=== PATIENT | male | born 1995 | race Caucasian/White ===

== ENCOUNTER 2019-08-14 13:01 | Emergency (ER) | payer BC ==
[~2019-08-14] VITALS: Ht 175.3 cm; Wt 123.0 kg
[~2019-08-14 13:01] MED LIST: ARIP400S3 IM; LORA-269 PO; ZOLP10TA5 PO
[2019-08-14] MEDS ORDERED: diphenhydrAMINE 50 mg/ml inj IM ONE (13:05)
[2019-08-14] MEDS ORDERED: LORazepam 2 mg/ml vial IM ONE (13:05)
[2019-08-14] MEDS ORDERED: haloperidol lactate 5mg/ml inj IM ONE (13:05)
[2019-08-14 14:08] LABS: BASOPHILS # (AUTO) 0.1 X10'3 (0-0.2); BASOPHILS % (AUTO) 0.6 % (0-1); EOSINOPHILS # (AUTO) 0.1 X10'3 (0-0.9); EOSINOPHILS % (AUTO) 1.5 % (0-6); HEMATOCRIT 41.1 % (42.0-52.0); HEMOGLOBIN 14.1 g/dl (14.0-17.9); LYMPHOCYTES # (AUTO) 3.2 X10'3 (1.1-4.8); LYMPHOCYTES % (AUTO) 39.4 % (21-51); MEAN CORPUSCULAR HEMOGLOBIN 29.6 PG (27.0-31.0); MEAN CORPUSCULAR HGB CONC 34.2 g/dL (33.0-36.5); MEAN CORPUSCULAR VOLUME 86.4 FL (78-98); MEAN PLATELET VOLUME 8.4 FL (7.4-10.4); MONOCYTES # (AUTO) 0.5 X10'3 (0-0.9); MONOCYTES % (AUTO) 5.6 % (2-12); NEUTROPHILS # (AUTO) 4.3 X10'3 (1.8-7.7); NEUTROPHILS % (AUTO) 52.9 % (42-75); PLATELET COUNT 321 X10'3 (140-440); RED BLOOD COUNT 4.75 X10'6 (4.70-6.10); RED CELL DISTRIBUTION WIDTH 13.3 % (11.5-14.5); WHITE BLOOD COUNT 8.2 X10'3 (4.5-11.0)
[2019-08-14 14:11] LABS: CLARITY,URINE CLEAR (Clear); COLOR,URINE STRAW (Yellow); GLUCOSE, URINE NEGATIVE (Neg); KETONES,URINE NEGATIVE (Neg); LEUKOCYTE ESTERASE ,URINE NEGATIVE (Neg); NITRITES, URINE NEGATIVE (Neg); OCCULT BLOOD,URINE NEGATIVE (Neg); PROTEIN,URINE NEGATIVE (Neg); UROBILINOGEN,URINE 0.2 E.U/dL (0.2-1.0)
[2019-08-14 14:14] LABS: UA COLLECTION TYPE VOIDED
[2019-08-14 14:15] LABS: ALANINE AMINOTRANSFERASE 30 U/L (12-78); ALBUMIN 3.9 G/DL (3.4-5.0); ALKALINE PHOSPHATASE 89 IU/L (46-116); ANION GAP 9 (8-16); ASPARTATE AMINO TRANSFERASE 23 U/L (10-37); BILIRUBIN,TOTAL 0.4 MG/DL (0.1-1.0); BLOOD UREA NITROGEN 11 MG/DL (7-18); BUN/CREATININE RATIO 12.6 (5.4-32.0); CALCIUM 9.1 MG/DL (8.5-10.1); CHLORIDE 107 MMOL/L (99-107); CREATININE 0.87 MG/DL (0.60-1.10); GLUCOSE 105 MG/DL (70-104); POTASSIUM 3.9 MMOL/L (3.5-5.1); SODIUM 140 MMOL/L (135-145); TOTAL CARBON DIOXIDE 24.2 MMOL/L (24-32); TOTAL PROTEIN 7.9 G/DL (6.4-8.2); eGFR > 90 ML/MIN
--- NOTE | 2019-08-14 14:20 | NUR ---
Pt is calm and cooperative. Restraints removed.
[2019-08-14 14:24] LABS: URINE AMPHETAMINE SCREEN NEGATIVE (Neg); URINE BARBITUATE SCREEN NEGATIVE (Neg); URINE BENZODIAZEPINES SCREEN NEGATIVE (Neg); URINE CANNABINOID SCREEN NEGATIVE (Neg); URINE COCAINE SCREEN POSITIVE (Neg); URINE METHADONE SCREEN NEGATIVE (Neg); URINE OPIATE SCREEN NEGATIVE (Neg); URINE PHENCYCLIDINE SCREEN NEGATIVE (Neg)
[2019-08-14 14:27] LABS: ETHANOL < 0.010 GM/DL (0.0-0.010)
[2019-08-14] MEDS ORDERED: nicotine 21mg patch - 24 hr TD ONE (15:05)
--- NOTE | 2019-08-14 15:20 | NUR ---
Pt continues to be calm and cooperative. Will continue to monitor.
--- NOTE | 2019-08-14 15:51 | NUR ---
Report by RONEY Rocha, on 562. Pt called 911 that he has a gun and suicidal. Pt charged at officer. by Parachute Manufacturing Supervisor. patient got agitated and patient got B52 and on restriants for a short period of time. Patient calm now. HX of schizophrenia, Panic attacks. Not taking meds.
--- NOTE | 2019-08-14 16:37 | NUR ---
Around 1630, Patient standing by his bed. Patient called the tech over and said he feels weak. Tech called the RN as RN approached patient as patient blacks out and falls almost straight back like a board. Patient hit his head on the ground and was out for a few seconds. Then patient grabs his head and yells "Ow". Then patient appears to completely pass out. Bilateral pupils were large at about a 5. Patient was non-responsive but breathing. Irving Saucedo came to evaluate patient and patient aroused after a couple of minutes. C-spine was maintained and a c-collar was placed on patient. Patient was placed on a gurney. Orders for CT of head and C-spine ordered. Patient is now awake and alert. Irving gave patient 3 items to remember, blue, waterfall and baseball. Patient has been able to repeat the items. Continue to monitor.
--- NOTE | 2019-08-14 16:54 | NUR ---
Patient also c/o numbness to left toes. Upper ext, equal strength, equal movement.
--- NOTE | 2019-08-14 17:01 | NUR ---
Patient pending CT. RN talking to patient as he lays in the gurney awaiting CT. Patient states he is still suicidal and states his life is "shit." Patient states he mother does support him emotionally but he doesn't want his mom knowing about this because he has done this before. Continue to monitor.
--- NOTE | 2019-08-14 17:04 | NUR ---
Patient to CT via [employer] and 2 security guards. Patient contines with c-collar. Continue to monitor.
--- NOTE | 2019-08-14 17:32 | NUR ---
Patient states he has a history of Stress Seizures.
[2019-08-14] MEDS ORDERED: HALO2TAB PO (18:06)
[2019-08-14] MEDS ORDERED: PROP10TA10 PO (18:06)
[2019-08-14] MEDS ORDERED: QUET50TA PO (18:06)
[2019-08-14] MEDS ORDERED: hydrOXYzine 25 MG tablet PO PRN (18:10)
[2019-08-14] MEDS ORDERED: acetaminophen 325mg tablet PO PRN (18:15)
--- NOTE | 2019-08-14 18:30 | NUR ---
Patient is awake and well oriented. Patient denies S/I or H/I at this moment. He denies hallucinations. Patient tells this telegraphic typewriter installer that he was drinking heavily over the past three days, "I spent over 600.00 on meth, cocaine, and alcohol. This patient speaks in a quiet voice, he makes fair eye contact. Patient has a history of Bipolar 2 and Schizophrenia. He states drugs "help me feel empowered." The patients bed is in view from the nursing station.
--- NOTE | 2019-08-14 19:30 | NUR ---
Patient is cooperative with staff. He is low fowlers in bed. He is wearing a cervical collar that was placed on the earlier shift.
--- NOTE | 2019-08-14 19:35 | NUR ---
Patient is sleeping on his right side. His cervical collar is laying on the floor. Patient will not wear it anymore. Per Dr. Cary patients neck is cleared.
[2019-08-14] MEDS ORDERED: aripiprazole 400mg suspension ER syringe IM SCH (19:40)
[2019-08-14] MEDS: propranolol 10mg tablet PO SCH (20:00)
[2019-08-14] MEDS ORDERED: QUEtiapine 25mg tablet PO SCH (21:00)
--- NOTE | 2019-08-14 21:05 | NUR ---
PACKET FAXED TO [facility]
[2019-08-14] MEDS: haloperidol 1mg tablet PO SCH (22:13)
--- NOTE | 2019-08-14 22:15 | NUR ---
GIVEN EVENING SEROQUEL AND HALDOL. TAKING MEDS WITH NO ISSUES. GIVEN SALTINE CRACKERS AND YOGURT AND FRESH PITCHER OF ICE WATER. . DENIES ANY OTHER NEEDS.
--- NOTE | 2019-08-14 22:24 | NUR ---
Patient is sleeping in low fowlers position. He has been medication compliant tonight.
--- NOTE | 2019-08-15 00:09 | NUR ---
pt observed resting calmly on back with eyes closed. respirations WNL
--- NOTE | 2019-08-15 00:23 | NUR ---
Patient is awake and restless in bed.
[2019-08-15] MEDS ORDERED: diphenhydrAMINE 25mg capsule PO ONE (00:30)
--- NOTE | 2019-08-15 00:58 | NUR ---
Patient given Ativan and Benadryl for anxiety and sleep. He is medication compliant.
--- NOTE | 2019-08-15 01:30 | NUR ---
Patient sleeping, no distress.
--- NOTE | 2019-08-15 02:45 | NUR ---
Patient sleeping supine with blankets covering him all the way up.
--- NOTE | 2019-08-15 03:45 | NUR ---
Patient still in supine position sleeping quietly.
--- NOTE | 2019-08-15 05:00 | NUR ---
Patient sleeping on his right side.
[2019-08-15 05:42] VITALS: BP 116/63
--- NOTE | 2019-08-15 06:10 | NUR ---
Patient remains asleep.
--- NOTE | 2019-08-15 07:10 | NUR ---
Patient sleeping on right side. No distress observed. Continue to monitor.
[2019-08-15] MEDS: propranolol 10mg tablet PO SCH (08:00)
--- NOTE | 2019-08-15 08:15 | NUR ---
Patient sitting up and eating. No distress observed. Continue to monitor.
[2019-08-15] MEDS: haloperidol 1mg tablet PO SCH (08:32)
[2019-08-15] MEDS ORDERED: haloperidol lactate 5mg/ml inj IM ONE (10:05)
[2019-08-15] MEDS ORDERED: LORazepam 2 mg/ml vial IM ONE (10:05)
--- NOTE | 2019-08-15 10:10 | NUR ---
Patient states he feels very suicidal and wants to run. Patient calm and speaking to Tech. Dr Zambrano evaluated patient and okayed IM Ativan and Haldol. Patient agreed to receive the injection. Continu to monitor.
[2019-08-16] MEDS ORDERED: NICO-687 TOP (19:37)
== END 2019-08-15 10:54 ==
LOC: ER 13:01
DX: R45.851 Suicidal ideations (principal); F20.0 Paranoid schizophrenia; I10 Essential (primary) hypertension; F41.9 Anxiety disorder, unspecified; F20.9 Schizophrenia, unspecified; F32.9 Major depressive disorder, single episode, unspecified; F14.10 Cocaine abuse, uncomplicated; F12.90 Cannabis use, unspecified, uncomplicated; Z79.899 Other long term (current) drug therapy
CPT/HCPCS: 36415; 70450; 72125; 80053; 80305; 80320; 81003; 84443; 85025; 96372; 99285; J1200; J1630; J2060; Q0163; Z7610

== ENCOUNTER 2019-08-15 09:53 | Inpatient (IN) | payer BC ==
[~2019-08-15] VITALS: Ht 175.3 cm; Wt 118.8 kg
[~2019-08-15 09:53] MED LIST changes: +HALO2TAB PO; +PROP10TA10 PO; +QUET50TA PO
[2019-08-15] MEDS ORDERED: acetaminophen 325mg tablet PO PRN ×2 (11:05)
[2019-08-15] MEDS ORDERED: magnesium hydroxide 30ml (MOM) UD suspension PO PRN (11:05)
[2019-08-15] MEDS ORDERED: LORazepam 1 MG tablet PO PRN (11:05)
[2019-08-15] MEDS ORDERED: NICOTINE POLACRILEX 2 MG LOZENGE BC PRN (11:05)
[2019-08-15] MEDS ORDERED: traZODone 50mg tablet PO PRN (11:05)
[2019-08-15] MEDS ORDERED: loperamide 2mg capsule PO PRN (11:05)
[2019-08-15] MEDS ORDERED: mag hydrox/Alum hydrox/simeth 30ml oral suspension PO PRN (11:05)
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
--- NOTE | 2019-08-15 17:15 | NUR ---
Pt. found in room on his stomach on the floor by staff unresponsive. Pt.'s roommate reports pt. came out of the bathroom and reported dizziness and roommate caught him and lowered him to the ground. Rapid response was called and pt. opened his eyes after this RN gave strong sternal rub. Pt. then awoke and helped into bed. Pt. A&Ox4. Hospitalist arrived and ordered orthostatic vitals which were supine, sitting, and standin/51 HR56, 103/56 HR79, 104/63 HR91. Orders are to monitor pt. and transfer to Telemetry if pt. has repeat episode. RN spoke with pt.'s nurse in ER overflow and was informed pt.'s Propanolol was discontinued because his HR was dropping into the 40s and 50s. Pt. had similar incident in the ER overflow yesterday when pt. became dizzy and fell back hitting his head on the floor. Pt. had CT scan which was negative. Will continue to monitor.
--- NOTE | 2019-08-15 17:41 | NUR ---
patient fainted and went on floor 02 sats 98% on ra and woke up nurses by his side Addendum: 08/15/19 at 1744 by Kathryn Reese RT Amended: Links added.
[2019-08-15 20:00] VITALS: BP 125/59
--- NOTE | 2019-08-15 20:00 | NUR ---
Pt. refused removal of Nicotine Patch at HS despite education, will endorse to AM shift.
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
--- NOTE | 2019-08-16 04:58 | NUR ---
Pt. awakens and ambulates without any difficulty to the nurse's station, he states, "I just want to go home." Pt. educated that he will talk to the doctor today, and he reported understanding. He was able to re-directed back to bed, and provided a warm blanket. Attempted to complete two-RN skin check at this time r/t no previous documentation under interventions, however pt. refused. Will endorse to AM shift.
[2019-08-16 07:02] LABS: HEMOGLOBIN A1C 5.2 % (4.5-6.2)
[2019-08-16 07:03] LABS: CHOL/HDL RATIO 3.4 (0.00-4.99); CHOLESTEROL 147 MG/DL (0-200); HDL CHOLESTEROL 43 MG/DL (35-60); LDL CHOLESTEROL 90 MG/DL (50-100); TRIGLYCERIDES 134 MG/DL (20-135)
[2019-08-16 07:26] VITALS: BP 98/56
[2019-08-16] MEDS ORDERED: QUEtiapine 25mg tablet PO SCH (08:00)
[2019-08-16] MEDS ORDERED: nicotine 21mg patch - 24 hr TD SCH (08:00)
--- NOTE | 2019-08-16 18:03 | NUR ---
Patient had another syncopal episode today. He was seen by Dr. Doherty he has decided him to transfer to Tele for cardiac work up and observation. Gave nurse to nurse report to Andree. He reported anxiety after the episode and ativan was given. VS WNL except for slightly elevated BP at 134/93, retaken at 142/84. Pt was observed during the episode by this RN. Pt stated "I am having a painc attack". He was holding his chest and was not making eye contact or blinking. His hands were shaking. He states "I can't move". This RN called for assistance and [employer] aided this RN in helping the patient to bed before he lost consciousness. Within seconds, patient sprung from the bed and ran to the door way of his room stating "is someone trying to kill me". He was then redirected back to bed. O2 was 99%, pulse at this time was 88. Patient currently denies SI/ HI, A/VH. Inventory completed by [employer]. Patient is in his street clothing. Andree, RN on Tele states that patient will be transferred after shift change.
[2019-08-16 18:14] VITALS: BP 183/93
--- NOTE | 2019-08-16 19:30 | NUR ---
Discharge Note: Pt. discharged to telemetry room 3013 per MD orders. Report given to BLAZE Loaiza, along with pt. belongings, paperwork, and 5150 by this nurse. Pt. was escorted in W/C by [employer] to receive a CT scan before being taken to the telemetry unit. Pt. calm and cooperative with process, V/S WNL, and no further episodes of syncope. Fall precautions remain in place.
[2019-08-16] MEDS ORDERED: NICO-687 TOP (19:37)
[2019-08-17] MEDS ORDERED: haloperidol 5mg tablet PO ONE (16:30)
[2019-08-17] MEDS ORDERED: LORazepam 1 MG tablet PO SCH (20:00)
[2019-08-17] MEDS ORDERED: haloperidol 5mg tablet PO SCH (20:00)
== END 2019-08-16 19:45 | disposition short-term general hospital (02) | DRG 880 ==
LOC: ADULT MH 09:53
PROVIDERS: ADMIT Psychiatry & Neurology Psychiatry; ATTEND Psychiatry & Neurology Psychiatry
DX: R45.851 Suicidal ideations (principal); F14.90 Cocaine use, unspecified, uncomplicated; F17.210 Nicotine dependence, cigarettes, uncomplicated; F32.9 Major depressive disorder, single episode, unspecified; F41.9 Anxiety disorder, unspecified; R42 Dizziness and giddiness; R55 Syncope and collapse
CPT/HCPCS: 36415; 80061; 82948; 83036; 87081; 99285

== ENCOUNTER 2019-08-16 17:51 | Inpatient (IN) | payer MEDICARE, BC, MEDICAID ==
[~2019-08-16] VITALS: Ht 175.3 cm; Wt 118.8 kg
[~2019-08-16 17:51] MED LIST changes: -HALO2TAB PO; -LORA-269 PO; -PROP10TA10 PO; -ZOLP10TA5 PO
[2019-08-16] MEDS ORDERED: mag hydrox/Alum hydrox/simeth 30ml oral suspension PO PRN (17:55)
[2019-08-16] MEDS ORDERED: ondansetron/PF 4mg/2ml inj IV PRN (17:55)
[2019-08-16] MEDS ORDERED: magnesium hydroxide 30ml (MOM) UD suspension PO PRN (17:55)
[2019-08-16] MEDS ORDERED: acetaminophen 325mg tablet PO PRN (17:55)
--- NOTE | 2019-08-16 19:24 | NUR ---
Received report from [facility] BLAZE Morgan. Patient being transported to room via wheelchair. Patient to be taken to CT scan upon arrival to the unit
[2019-08-16] MEDS ORDERED: NICO-687 TOP (19:37)
--- NOTE | 2019-08-16 19:50 | NUR ---
Patient was being settled into bed by PCT/John and she called staff into the room stating patient passed out. Per PCT patient had been sitting on the side of the bed and stated that he felt like he was going to pass out and then did. Upon arrival to the room patient was on the bed and was slumped over. Patient still had a pulse and was breathing normally. Patient was assisted to a lying position in bed. Sternal rub was administered and after a moment or two patient woke up and a minute or two later began responding to staff appropriately. I asked patient what it was he felt when he said he felt like he was going to pass out and he described it as a tingly all over feeling. Vital signs were unchanged from arrival. Patient had not yet had his tele applied prior to this episode but tele was immediately applied when placed in bed and maintenance mechanic telephone reports sinus rhythm in the 70s. IV was immediately initiated per MD order and NS was started.
[2019-08-16] MEDS: heparin, porcine 5000 units/ml vial SQ SCH (20:00)
[2019-08-16] MEDS: normal saline 1000ml 1,000 ML IV SCH (20:08)
[2019-08-16 20:30] VITALS: BP 135/65
[2019-08-16 21:50] VITALS: BP 127/58
--- NOTE | 2019-08-16 22:20 | NUR ---
Since arrival patient has had 2 additional episodes of falling unresponsive. Patient's vitals remain stable during these episodes. No tele monitor changes. Patient has told sitter each time that he feels it coming on with a tingling feeling in his head and his vision gets blurry. Patient has been in bed each during these episodes. Each episode lasts 5-10 minutes then he wakes up completely oriented. MD made aware of these episodes and advised to continue to monitor vitals signs hourly. Will continue to monitor.
[2019-08-16 23:00] VITALS: BP 109/50
[2019-08-17] VITALS (9 sets, daily range): BP systolic 97–129; BP diastolic 50–66
[2019-08-17] MEDS: normal saline 1000ml 1,000 ML IV SCH ×3 (03:53→23:53)
--- NOTE | 2019-08-17 05:43 | NUR ---
Student Medication Administration: For this medication-pass time frame, all medication were reviewed, dispensed, administered and documented per hospital policy by Lora STEPHENSON.
--- NOTE | 2019-08-17 05:53 | NUR ---
Called to the room by sitter due to patient having another syncopal episode. Patient's vitals remain unchanged. Patient began to arouse after 3-4 minutes of being unresponsive. No s/s of distress noted during episode. Continuing to monitor
[2019-08-17] MEDS ORDERED: LORazepam 2 mg/ml vial ONE ×2 (06:01→06:04)
[2019-08-17] MEDS ORDERED: levetiracetam inj 500 MG in normal saline 100ml IV soln 95 ML IV SCH (06:05)
[2019-08-17] MEDS ORDERED: LORazepam 2 mg/ml vial IM PRN (06:05)
[2019-08-17] MEDS ORDERED: Levetiracetam-NS 500mg/100ml 100 ML IV SCH (06:15)
--- NOTE | 2019-08-17 06:17 | NUR ---
Was immediately called back into the room by sitter stating that patient was now unresponsive with jerking movement. Upon assessment patient appeared to be actively seizing. Vitals remained stable. Had charge accounts audit clerk notify Dr. Cheung while I stayed in room with patient. Administered 2mg IVP Ativan immediately and jerking movements stopped. Patient had 3 episodes each lasting a minute or two of jerking movements with drooling and nonresponsive to any stimuli. Suction was set up and seizure pads placed. After a few minutes of remaining unresponsive patient became alert and was reoriented. Will administer ordered Keppra when available from pharmacy
--- NOTE | 2019-08-17 06:33 | NUR ---
Problems reprioritized. Patient report given, questions answered & plan of care reviewed with Arabella THAKUR.
[2019-08-17 06:38] LABS: BASOPHILS # (AUTO) 0.1 X10'3 (0-0.2); BASOPHILS % (AUTO) 0.7 % (0-1); EOSINOPHILS # (AUTO) 0.2 X10'3 (0-0.9); EOSINOPHILS % (AUTO) 2.4 % (0-6); HEMATOCRIT 38.3 % (42.0-52.0); HEMOGLOBIN 13.4 g/dl (14.0-17.9); LYMPHOCYTES # (AUTO) 3.4 X10'3 (1.1-4.8); LYMPHOCYTES % (AUTO) 45.5 % (21-51); MEAN CORPUSCULAR HEMOGLOBIN 30.5 PG (27.0-31.0); MEAN CORPUSCULAR HGB CONC 35.1 g/dL (33.0-36.5); MEAN CORPUSCULAR VOLUME 86.9 FL (78-98); MEAN PLATELET VOLUME 8.2 FL (7.4-10.4); MONOCYTES # (AUTO) 0.5 X10'3 (0-0.9); NEUTROPHILS # (AUTO) 3.3 X10'3 (1.8-7.7); NEUTROPHILS % (AUTO) 44.4 % (42-75); PLATELET COUNT 263 X10'3 (140-440); RED BLOOD COUNT 4.41 X10'6 (4.70-6.10); RED CELL DISTRIBUTION WIDTH 13.5 % (11.5-14.5); WHITE BLOOD COUNT 7.4 X10'3 (4.5-11.0)
[2019-08-17 07:04] LABS: ALANINE AMINOTRANSFERASE 31 U/L (12-78); ALBUMIN 3.4 G/DL (3.4-5.0); ALBUMIN/GLOBULIN RATIO 0.9 (1.1-1.5); ALKALINE PHOSPHATASE 77 IU/L (46-116); ANION GAP 8 (8-16); ASPARTATE AMINO TRANSFERASE 21 U/L (10-37); BILIRUBIN,TOTAL 0.2 MG/DL (0.1-1.0); BLOOD UREA NITROGEN 19 MG/DL (7-18); BUN/CREATININE RATIO 24.1 (5.4-32.0); CHLORIDE 106 MMOL/L (99-107); CREATININE 0.79 MG/DL (0.60-1.10); GLUCOSE 91 MG/DL (70-104); POTASSIUM 4.1 MMOL/L (3.5-5.1); SODIUM 141 MMOL/L (135-145); TOTAL CARBON DIOXIDE 27.4 MMOL/L (24-32); TOTAL PROTEIN 7.2 G/DL (6.4-8.2); eGFR > 90 ML/MIN
[2019-08-17] MEDS: heparin, porcine 5000 units/ml vial SQ SCH ×2 (08:57→19:21)
--- NOTE | 2019-08-17 09:16 | NUR ---
CM Presenting Issue: Pt was d/c and transferred to Telemetry Unit for treatment/monitoring of seizure-like behaviors. Interventions: SS had t/c with pt's [facility]'s Service Counselor-Rajiv Christensen, left requesting rt p/c to facilitate assessment & dcp services. SS/Case Management notified of plan for pt to rt to [facility] when medically cleared. Plan: will continue to engage [facility] in assessment & dcp activities & consult w/SS-Case Management team to facilitate pt's rt to [facility]. Alexus Cooper LCSW Addendum: 08/17/19 at 0921 by Alexus Cooper Amended: Links added.
[2019-08-17] MEDS ORDERED: levetiracetam inj 500 MG in normal saline 100ml IV soln 95 ML IV ONE (09:25)
[2019-08-17] MEDS ORDERED: LORazepam 2 mg/ml vial IV PRN ×2 (09:40→10:15)
[2019-08-17] MEDS: LORazepam 2 mg/ml vial IV PRN ×2 (11:21→15:48)
--- NOTE | 2019-08-17 11:40 | NUR ---
Patient agitated and resisting care. Security in room. Patient attempted to run, stopped by security.
[2019-08-17] MEDS ORDERED: haloperidol lactate 5mg/ml inj IM ONE (11:45)
--- NOTE | 2019-08-17 11:49 | NUR ---
Patient restrained by security team. Patient combative, yelling profanities. New order for Haldol 10mg IM x1 given in right deltoid.
[2019-08-17] MEDS ORDERED: LORazepam 2 mg/ml vial IV ONE (11:55)
--- NOTE | 2019-08-17 11:55 | NUR ---
Patient assisted to bed, restraints placed on bilateral wrists and bilateral ankles. Patient awake, still resisting to care. New order for Ativan 4mg IM x1.
[2019-08-17] MEDS ORDERED: diphenhydrAMINE 50 mg/ml inj IV ONE (12:00)
[2019-08-17] MEDS ORDERED: haloperidol lactate 5mg/ml inj IM PRN (12:00)
[2019-08-17] MEDS ORDERED: LORazepam 2 mg/ml vial IM ONE (12:10)
--- NOTE | 2019-08-17 12:18 | NUR ---
Patient given Ativan 4mg IM given in left thigh. Patient bilateral wrists and ankles in restraints.
--- NOTE | 2019-08-17 13:34 | NUR ---
Paged EEG to notify them of order.
--- NOTE | 2019-08-17 13:35 | NUR ---
Patient released from restraints. Patient resting, awake at times. Patient reoriented to situation. Patient cooperative and following direction at this time. All needs have been met. Sitter at bedside in line of sight. Will continue to monitor.
[2019-08-17] MEDS ORDERED: haloperidol 5mg tablet PO ONE (16:35)
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
[2019-08-17] MEDS ORDERED: aripiprazole 400mg suspension ER syringe IM SCH (17:55)
--- NOTE | 2019-08-17 18:02 | NUR ---
Page sent to Dr. Doherty to update on patients condition PAGER ID: [phone] MESSAGE: [phone]: Ronaldo Lantigua. [facility] restarted pt on Haldol 5mg PO BID and Ativan 2mg PO BID. Pts last seizure 1600. Patient still agitated at times. EEG done, but has not resulted yet. Thanks, Arabella x [phone]
--- NOTE | 2019-08-17 18:30 | NUR ---
Patient in room PCU 3013. I have received report from Arabella Siddiqi RN and had the opportunity to ask questions and assume patient care.
[2019-08-17] MEDS: haloperidol 5mg tablet PO SCH (19:20)
[2019-08-17] MEDS: LORazepam 1 MG tablet PO SCH (19:20)
[2019-08-17] MEDS: levetiracetam 250mg tablet PO SCH (19:21)
[2019-08-17] MEDS: QUEtiapine 25mg tablet PO SCH (20:56)
--- NOTE | 2019-08-17 21:49 | NUR ---
pt did not eat dinner tray but has eaten sandwiches.
--- NOTE | 2019-08-18 02:00 | NUR ---
pt refused 0200 vitals
--- NOTE | 2019-08-18 04:04 | NUR ---
Problems reprioritized. Patient report given, questions answered & plan of care reviewed with Fadia THAKUR.
--- NOTE | 2019-08-18 06:31 | NUR ---
Patient in room PCU 3013. I have received report from BLAZE Lynch and had the opportunity to ask questions and assume patient care.
--- NOTE | 2019-08-18 06:36 | NUR ---
Problems reprioritized. Patient report given, questions answered & plan of care reviewed with Yajaira THAKUR.
[2019-08-18 07:52] LABS: BASOPHILS # (AUTO) 0.1 X10'3 (0-0.2); BASOPHILS % (AUTO) 0.8 % (0-1); EOSINOPHILS # (AUTO) 0.2 X10'3 (0-0.9); EOSINOPHILS % (AUTO) 2.5 % (0-6); HEMATOCRIT 39.3 % (42.0-52.0); HEMOGLOBIN 13.7 g/dl (14.0-17.9); LYMPHOCYTES # (AUTO) 2.7 X10'3 (1.1-4.8); LYMPHOCYTES % (AUTO) 37.8 % (21-51); MEAN CORPUSCULAR HEMOGLOBIN 30.4 PG (27.0-31.0); MEAN CORPUSCULAR VOLUME 86.9 FL (78-98); MEAN PLATELET VOLUME 7.8 FL (7.4-10.4); MONOCYTES # (AUTO) 0.5 X10'3 (0-0.9); MONOCYTES % (AUTO) 6.6 % (2-12); NEUTROPHILS # (AUTO) 3.7 X10'3 (1.8-7.7); NEUTROPHILS % (AUTO) 52.3 % (42-75); PLATELET COUNT 255 X10'3 (140-440); RED BLOOD COUNT 4.52 X10'6 (4.70-6.10); RED CELL DISTRIBUTION WIDTH 13.3 % (11.5-14.5)
[2019-08-18] MEDS: LORazepam 1 MG tablet PO SCH ×2 (07:52→20:12)
[2019-08-18] MEDS: haloperidol 5mg tablet PO SCH ×2 (07:52→20:12)
[2019-08-18] MEDS: levetiracetam 250mg tablet PO SCH ×2 (07:52→20:12)
[2019-08-18] MEDS: heparin, porcine 5000 units/ml vial SQ SCH ×2 (07:53→20:13)
[2019-08-18 08:00] VITALS: BP_SYST 109; BP_SYST 112; BP_SYST 113; BP_DIAS 59; BP_DIAS 61; BP_DIAS 64
[2019-08-18] MEDS: nicotine 21mg patch - 24 hr TD SCH (08:00)
[2019-08-18] MEDS ORDERED: QUEtiapine 25mg tablet PO SCH (08:00)
[2019-08-18 08:04] LABS: ALANINE AMINOTRANSFERASE 34 U/L (12-78); ALBUMIN 3.5 G/DL (3.4-5.0); ALBUMIN/GLOBULIN RATIO 0.9 (1.1-1.5); ALKALINE PHOSPHATASE 81 IU/L (46-116); ANION GAP 7 (8-16); ASPARTATE AMINO TRANSFERASE 24 U/L (10-37); BILIRUBIN,TOTAL 0.2 MG/DL (0.1-1.0); BLOOD UREA NITROGEN 16 MG/DL (7-18); BUN/CREATININE RATIO 19.3 (5.4-32.0); CALCIUM 9.1 MG/DL (8.5-10.1); CHLORIDE 107 MMOL/L (99-107); CREATININE 0.83 MG/DL (0.60-1.10); GLUCOSE 91 MG/DL (70-104); POTASSIUM 4.2 MMOL/L (3.5-5.1); SODIUM 140 MMOL/L (135-145); TOTAL CARBON DIOXIDE 26.2 MMOL/L (24-32); TOTAL PROTEIN 7.3 G/DL (6.4-8.2); eGFR > 90 ML/MIN
[2019-08-18] MEDS: normal saline 1000ml 1,000 ML IV SCH ×2 (09:53→19:53)
[2019-08-18] MEDS: propranolol 10mg tablet PO SCH ×2 (14:19→20:13)
[2019-08-18 15:00] VITALS: BP 117/71
[2019-08-18 18:00] VITALS: BP 129/59
--- NOTE | 2019-08-18 18:57 | NUR ---
Problems reprioritized. Patient report given, questions answered & plan of care reviewed with BLAZE Rocha.
--- NOTE | 2019-08-18 19:00 | NUR ---
Patient in room PCU 3013. I have received report from and had the opportunity to ask questions and assume patient care.
[2019-08-18] MEDS: QUEtiapine 25mg tablet PO SCH (20:13)
[2019-08-18 22:00] VITALS: BP 102/51
[2019-08-18] MEDS: LORazepam 2 mg/ml vial IV PRN (23:12)
[2019-08-19] VITALS (8 sets, daily range): BP systolic 103–123; BP diastolic 49–78
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
[2019-08-19] MEDS ORDERED: haloperidol lactate 5mg/ml inj IM ONE (02:20)
[2019-08-19] MEDS ORDERED: LORazepam 2 mg/ml vial IV ONE (03:35)
--- NOTE | 2019-08-19 04:00 | NUR ---
DR. Castillo ordered 10 mg of haldol and 2 mg of ativan. PT was still sitting up in bed and threatening to harm staff. Dr castillo ordered another 10 mg of haldol another 4 mg of ativan and 50mg of benadryl.
[2019-08-19] MEDS ORDERED: LORazepam 2 mg/ml vial IV STA (04:27)
[2019-08-19] MEDS ORDERED: haloperidol lactate 5mg/ml inj IM STA (04:27)
[2019-08-19] MEDS ORDERED: diphenhydrAMINE 50 mg/ml inj IV STA (04:27)
[2019-08-19] MEDS ORDERED: diphenhydrAMINE 50 mg/ml inj ONE (04:29)
--- NOTE | 2019-08-19 05:15 | NUR ---
Pt still agitated DR. Doherty does not want to give more medication and wants to give a chance fro the meds previously given to work.
[2019-08-19] MEDS: normal saline 1000ml 1,000 ML IV SCH ×2 (05:53→14:44)
--- NOTE | 2019-08-19 06:26 | NUR ---
Patient in room PCU 3013B. I have received report from Aj THAKUR and had the opportunity to ask questions and assume patient care.
--- NOTE | 2019-08-19 07:10 | NUR ---
Messaged pharmacy to remove Ativan and Benadryl that were red on EMAR from 08/17/2019. Pharmacy called and said that because medications were d/c'd they could not remove and that nursing had to remove. Will Non-Admin to clear
[2019-08-19] MEDS: levetiracetam 250mg tablet PO SCH (07:23)
[2019-08-19] MEDS: haloperidol 5mg tablet PO SCH (07:25)
[2019-08-19] MEDS: LORazepam 1 MG tablet PO SCH (07:25)
[2019-08-19] MEDS: propranolol 10mg tablet PO SCH (07:26)
[2019-08-19] MEDS: heparin, porcine 5000 units/ml vial SQ SCH (07:28)
[2019-08-19] MEDS: nicotine 21mg patch - 24 hr TD SCH (07:33)
--- NOTE | 2019-08-19 07:47 | NUR ---
Archie VALDERRAMA PAGER ID: [phone] MESSAGE: Emma CARPENTER. Blake Swain [id number]. PT has been receiving 50 mg Quetiapine at 1999. However order is unclear with pharmacy on when medication should be scheduled. May I rewrite order for patient to receive HS? Thank you
--- NOTE | 2019-08-19 08:46 | NUR ---
Nithyad PAGER ID: [phone] MESSAGE: Emma CARPENTER. Blake Swain [id number]. Lab is requesting order for okay to draw from foot. Able to draw from upper extremities but blood not drawing well
--- NOTE | 2019-08-19 08:51 | NUR ---
Right lower extremity restraint released. Will monitor closely
--- NOTE | 2019-08-19 09:12 | NUR ---
Spoke to Dr Cook, said to continue with AM orthostatics and if negative and heart rate stays controlled during, he will send patient back to Behavioral Health Unit.
[2019-08-19 09:28] LABS: ALANINE AMINOTRANSFERASE 35 U/L (12-78); ALBUMIN 3.6 G/DL (3.4-5.0); ALBUMIN/GLOBULIN RATIO 0.9 (1.1-1.5); ALKALINE PHOSPHATASE 77 IU/L (46-116); ANION GAP 9 (8-16); BILIRUBIN,TOTAL 0.3 MG/DL (0.1-1.0); BLOOD UREA NITROGEN 16 MG/DL (7-18); BUN/CREATININE RATIO 19.8 (5.4-32.0); CALCIUM 8.9 MG/DL (8.5-10.1); CHLORIDE 108 MMOL/L (99-107); CREATININE 0.81 MG/DL (0.60-1.10); GLUCOSE 99 MG/DL (70-104); SODIUM 140 MMOL/L (135-145); TOTAL CARBON DIOXIDE 22.6 MMOL/L (24-32); TOTAL PROTEIN 7.5 G/DL (6.4-8.2); eGFR > 90 ML/MIN
[2019-08-19 09:29] LABS: ASPARTATE AMINO TRANSFERASE 64 U/L (10-37); POTASSIUM 4.8 MMOL/L (3.5-5.1)
--- NOTE | 2019-08-19 09:30 | NUR ---
Spoke with Dr Cook regarding lab. stated that he is fine with the CBC from 08/18 and BMP from today, 08/19 and does not need lab to come up and try again
--- NOTE | 2019-08-19 09:34 | NUR ---
paged Dr Cook with orthostatic results PAGER ID: [phone] MESSAGE: Emma CARPENTER. Blake Swain [id number]. Orthostatic BP's negative. HR increased from 88 to 111 upon sit to stand
--- NOTE | 2019-08-19 09:55 | NUR ---
Orders from Dr Cook to increase Propranolol from 10 mg to 20 mg TID; change the Seroquel 50 mg from daily to HS; and for the BID Haldol to be changed from 5 mg to 10 mg PO BID. Addendum: 08/19/19 at 0958 by Emma Latham RN already changed Haldol order [email or web address]
--- NOTE | 2019-08-19 10:28 | NUR ---
Problems reprioritized. Patient report given, questions answered & plan of care reviewed with Nerissa THAKUR.
--- NOTE | 2019-08-19 10:28 | NUR ---
Patient in room PCU 3013. I have received report from Emma THAKUR and had the opportunity to ask questions and assume patient care. Patient resting in bed, sitter present at bedside. Will continue to monitor patient.
[2019-08-19] MEDS ORDERED: propranolol 10mg tablet PO SCH (13:00)
[2019-08-19] MEDS: LORazepam 2 mg/ml vial IV PRN (15:36)
[2019-08-19] MEDS ORDERED: PROP10TA10 PO (16:48)
[2019-08-19] MEDS ORDERED: ATI1T PO (16:50)
[2019-08-19] MEDS ORDERED: QUET25TA34 PO (16:50)
[2019-08-19] MEDS ORDERED: LEVE500T PO (16:50)
[2019-08-19] MEDS ORDERED: HALO5TAB PO (16:50)
--- NOTE | 2019-08-19 18:30 | NUR ---
ATTEMPTED TO CALL BEHAVIORAL HEALTH TO GIVE REPORT TO TRANSFER PT, NO ONE ANSWERING THE PHONE
--- NOTE | 2019-08-19 18:33 | NUR ---
Problems reprioritized. Patient report given, questions answered & plan of care reviewed with Salina THAKUR.
--- NOTE | 2019-08-19 19:10 | NUR ---
MADE ANOTHER ATTEMPT TO CALL BEHAVIORAL HEALTH TO GIVE REPORT TO TRANSFER THE PT, NO ONE ANSWERING THE PHONE.
[2019-08-19] MEDS ORDERED: haloperidol 5mg tablet PO SCH (20:00)
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
[2019-08-19] MEDS ORDERED: QUEtiapine 25mg tablet PO SCH (21:00)
[2019-08-20] MEDS ORDERED: LEVE500T99 PO (02:43)
[2019-08-20] MEDS ORDERED: QUET50TA22 PO (02:43)
[2019-08-20] MEDS ORDERED: LORA-269 PO (02:43)
[2019-08-20] MEDS ORDERED: PROP20TA6 PO (02:43)
[2019-08-20] MEDS ORDERED: HALO2TAB PO (02:45)
[2019-08-20] MEDS ORDERED: HALO5TAB PO (02:53)
[2019-08-20] MEDS ORDERED: NO HOME MEDS (13:53)
[2019-08-23] MEDS ORDERED: NICO-687 TOP (15:32)
[2019-08-23] MEDS ORDERED: QUET50TA22 PO (15:32)
[2019-08-23] MEDS ORDERED: EFF37.5XRC PO (15:32)
[2019-08-23] MEDS ORDERED: HYDR-3686 PO (15:32)
[2019-08-23] MEDS ORDERED: PROP20TA6 PO (15:32)
[2019-08-23] MEDS ORDERED: LEVE500T99 PO (15:32)
[2019-08-23] MEDS ORDERED: LORA-269 PO (15:32)
[2019-08-23] MEDS ORDERED: HALO5TAB PO (15:32)
[2019-08-30] MEDS ORDERED: aripiprazole 400mg suspension ER syringe IM SCH (20:20)
== END 2019-08-19 20:05 | disposition left against medical advice (07) | DRG 101 ==
LOC: PCU 3S 18:26 → OBSVTOIN 08-17 09:44
PROVIDERS: ADMIT Family Medicine; ATTEND Family Medicine
PROC: 4A00X4Z Measurement of Central Nervous Electrical Activity, External Approach (ICD-10-PCS; principal; 2019-08-17)
DX: G40.909 Epilepsy, unspecified, not intractable, without status epilepticus (principal); R45.851 Suicidal ideations; F17.210 Nicotine dependence, cigarettes, uncomplicated; F29 Unspecified psychosis not due to a substance or known physiological condition; F32.9 Major depressive disorder, single episode, unspecified; F41.9 Anxiety disorder, unspecified; Z78.1 Physical restraint status; W18.39XA Other fall on same level, initial encounter; Y93.89 Activity, other specified; Y92.89 Other specified places as the place of occurrence of the external cause; Y99.8 Other external cause status; R00.0 Tachycardia, unspecified; F41.1 Generalized anxiety disorder; Z79.899 Other long term (current) drug therapy; Z53.29 Procedure and treatment not carried out because of patient's decision for other reasons
CPT/HCPCS: 36415; 70450; 80053; 85025; 87081; 93306; 95816; G0378; J1200; J1630; J1644; J1953; J2060; J7030

== ENCOUNTER 2019-08-19 23:03 | Emergency (ER) | payer MEDICARE, BC, MEDICAID ==
[~2019-08-19] VITALS: Ht 175.3 cm; Wt 118.2 kg
[~2019-08-19 23:03] MED LIST changes: +ATI1T PO; +HALO5TAB PO; +LEVE500T PO; +NICO-687 TOP; +PROP10TA10 PO; +QUET25TA34 PO
[2019-08-19] MEDS ORDERED: QUEtiapine 25mg tablet PO SCH (23:50)
[2019-08-19] MEDS ORDERED: haloperidol lactate 5mg/ml inj IM ONE (23:50)
[2019-08-19] MEDS ORDERED: propranolol 10mg tablet PO ONE (23:50)
[2019-08-19] MEDS ORDERED: QUEtiapine 25mg tablet PO ONE (23:50)
[2019-08-20 00:22] LABS: BASOPHILS # (AUTO) 0.1 X10'3 (0-0.2); BASOPHILS % (AUTO) 0.8 % (0-1); EOSINOPHILS # (AUTO) 0.1 X10'3 (0-0.9); EOSINOPHILS % (AUTO) 1.6 % (0-6); HEMATOCRIT 40.2 % (42.0-52.0); HEMOGLOBIN 14.1 g/dl (14.0-17.9); LYMPHOCYTES # (AUTO) 2.3 X10'3 (1.1-4.8); LYMPHOCYTES % (AUTO) 24.4 % (21-51); MEAN CORPUSCULAR HEMOGLOBIN 30.9 PG (27.0-31.0); MEAN CORPUSCULAR HGB CONC 35.2 g/dL (33.0-36.5); MEAN CORPUSCULAR VOLUME 87.8 FL (78-98); MEAN PLATELET VOLUME 7.7 FL (7.4-10.4); MONOCYTES # (AUTO) 0.5 X10'3 (0-0.9); MONOCYTES % (AUTO) 5.7 % (2-12); NEUTROPHILS # (AUTO) 6.3 X10'3 (1.8-7.7); NEUTROPHILS % (AUTO) 67.5 % (42-75); PLATELET COUNT 263 X10'3 (140-440); RED BLOOD COUNT 4.57 X10'6 (4.70-6.10); RED CELL DISTRIBUTION WIDTH 13.7 % (11.5-14.5); WHITE BLOOD COUNT 9.3 X10'3 (4.5-11.0)
[2019-08-20 00:26] LABS: URINE AMPHETAMINE SCREEN NEGATIVE (Neg); URINE BARBITUATE SCREEN NEGATIVE (Neg); URINE BENZODIAZEPINES SCREEN NEGATIVE (Neg); URINE CANNABINOID SCREEN NEGATIVE (Neg); URINE COCAINE SCREEN NEGATIVE (Neg); URINE METHADONE SCREEN NEGATIVE (Neg); URINE OPIATE SCREEN NEGATIVE (Neg); URINE PHENCYCLIDINE SCREEN NEGATIVE (Neg)
[2019-08-20 00:39] LABS: ALANINE AMINOTRANSFERASE 42 U/L (12-78); ALBUMIN 3.9 G/DL (3.4-5.0); ALKALINE PHOSPHATASE 94 IU/L (46-116); ANION GAP 8 (8-16); ASPARTATE AMINO TRANSFERASE 78 U/L (10-37); BILIRUBIN,TOTAL 0.3 MG/DL (0.1-1.0); BLOOD UREA NITROGEN 16 MG/DL (7-18); BUN/CREATININE RATIO 16.5 (5.4-32.0); CALCIUM 9.5 MG/DL (8.5-10.1); CHLORIDE 107 MMOL/L (99-107); CREATININE 0.97 MG/DL (0.60-1.10); ETHANOL < 0.010 GM/DL (0.0-0.010); GLUCOSE 100 MG/DL (70-104); POTASSIUM 3.8 MMOL/L (3.5-5.1); SODIUM 141 MMOL/L (135-145); TOTAL CARBON DIOXIDE 26.3 MMOL/L (24-32); TOTAL PROTEIN 7.9 G/DL (6.4-8.2); eGFR > 90 ML/MIN
--- NOTE | 2019-08-20 00:54 | NUR ---
Parents Phones: [phone] Parth Lantigua, Father [phone] Veronica Lantigua, Mother
--- NOTE | 2019-08-20 00:58 | NUR ---
Triggers Per Patient's Parents: Talking about patients conditions in front of him, does not like to be touched without his permission, does not like being told "No"
[2019-08-20] MEDS ORDERED: diphenhydrAMINE 50 mg/ml inj IM PRN (01:00)
[2019-08-20] MEDS ORDERED: LORazepam 2 mg/ml vial IM PRN (01:00)
[2019-08-20] MEDS ORDERED: haloperidol lactate 5mg/ml inj IM PRN (01:00)
[2019-08-20] MEDS ORDERED: QUET50TA22 PO (02:43)
[2019-08-20] MEDS ORDERED: LORA-269 PO (02:43)
[2019-08-20] MEDS ORDERED: PROP20TA6 PO (02:43)
[2019-08-20] MEDS ORDERED: LEVE500T99 PO (02:43)
[2019-08-20] MEDS ORDERED: HALO2TAB PO (02:45)
[2019-08-20] MEDS ORDERED: HALO5TAB PO (02:53)
--- NOTE | 2019-08-20 07:00 | NUR ---
Pt remains sleeping in bed without complaints or signs of distress.
[2019-08-20] MEDS ORDERED: nicotine 21mg patch - 24 hr TD SCH (08:00)
--- NOTE | 2019-08-20 08:01 | NUR ---
Pt remains sleeping in bed without complaints or signs of distress.
[2019-08-20] MEDS: propranolol 10mg tablet PO SCH ×2 (08:24→19:09)
[2019-08-20] MEDS: haloperidol 5mg tablet PO SCH ×2 (08:24→19:09)
[2019-08-20] MEDS: LORazepam 1 MG tablet PO SCH ×2 (08:24→19:08)
[2019-08-20] MEDS: levetiracetam 250mg tablet PO SCH ×2 (08:27→19:08)
--- NOTE | 2019-08-20 09:25 | NUR ---
Pt up for breakfast, ambulate to the bathroom. Behavioral quiet and compliant. Affect flat. Parents at bedside.
--- NOTE | 2019-08-20 09:34 | NUR ---
DENNY WITH [facility] AT BEDSIDE FOR EVALUATION NOW
--- NOTE | 2019-08-20 11:00 | NUR ---
Pt sitting up in bed with parents at bedside. Minimal interaction. Pt was evaluated by [facility] and he was cooperative with that process.
--- NOTE | 2019-08-20 13:00 | NUR ---
Pt sitting up in bed and minimally interacting with parents who are still at bedside.
--- NOTE | 2019-08-20 13:21 | NUR ---
CALLED [facility] SHE WILL TALK TO PERRI TILLEY FOR ADMIT ORDERS AND PT CAN GO UP TO [facility] ONCE PATIENT IS OUT OF RESTRAINT ROOM. UPDATED PT MOTHER TO THIS SITUATION.
--- NOTE | 2019-08-20 13:49 | NUR ---
Danielle from [facility] called and pt has accepted by [facility]. [facility] notified and they are getting a bed ready and will call when ready.
--- NOTE | 2019-08-20 13:52 | NUR ---
PT SISTER IS HERE TO RELIEVE PARENTS FROM BEDSIDE, PARENT LEFT AND SISTER REMAINS AT BEDSIDE
[2019-08-20] MEDS ORDERED: NO HOME MEDS (13:53)
--- NOTE | 2019-08-20 15:00 | NUR ---
Pt lying in bed and appears to be asleep. Parents remain at bedside.
--- NOTE | 2019-08-20 15:48 | NUR ---
PT PARENTS INFORMED PT ADMISSION TO [facility] WILL MOST LIKELY HAPPEN AFTER CHANGE OF SHIFT AT APPROX 1900, PT MOTHER LEFT BEDSIDE AND FATHER REMAINS AT BEDSIDE.
--- NOTE | 2019-08-20 17:13 | NUR ---
Pt medicated as ordered with ativan 2mg IM. Pt requested something to help with the anxiety and aggitation. Pt's father reports the ativan has been known to be effective with symptom management in the past.
--- NOTE | 2019-08-20 17:18 | NUR ---
JUANY CHARGE NURSE INFORMED PT TO GO TO [facility] AFTER CHANGE OF SHIFT.
[2019-08-20 17:22] VITALS: BP 108/59
--- NOTE | 2019-08-20 19:30 | NUR ---
pt reported feeling anxious and asked if there was something he can take. pt was given his pm meds, including ativan, haldol. pt is now resting comfortably in bed, no needs at this time.
--- NOTE | 2019-08-20 19:54 | NUR ---
Pt's blisters on bilateral feet are covered with bandaids and wrapped in coban.
--- NOTE | 2019-08-20 20:25 | NUR ---
pt's parents left, pt is now resting in bed quietly.
[2019-08-20] MEDS ORDERED: QUEtiapine 25mg tablet PO SCH (21:00)
[2019-08-23] MEDS ORDERED: EFF37.5XRC PO (15:32)
[2019-08-23] MEDS ORDERED: QUET50TA22 PO (15:32)
[2019-08-23] MEDS ORDERED: NICO-687 TOP (15:32)
[2019-08-23] MEDS ORDERED: LORA-269 PO (15:32)
[2019-08-23] MEDS ORDERED: HYDR-3686 PO (15:32)
[2019-08-23] MEDS ORDERED: PROP20TA6 PO (15:32)
[2019-08-23] MEDS ORDERED: HALO5TAB PO (15:32)
[2019-08-23] MEDS ORDERED: LEVE500T99 PO (15:32)
[2019-09-07] MEDS ORDERED: aripiprazole 400mg suspension ER syringe IM SCH (08:00)
== END 2019-08-20 21:39 ==
LOC: ER 23:03
DX: R45.851 Suicidal ideations (principal); F29 Unspecified psychosis not due to a substance or known physiological condition; F41.9 Anxiety disorder, unspecified; F12.90 Cannabis use, unspecified, uncomplicated; F14.90 Cocaine use, unspecified, uncomplicated; M79.673 Pain in unspecified foot; F15.90 Other stimulant use, unspecified, uncomplicated; Z72.89 Other problems related to lifestyle; Z79.899 Other long term (current) drug therapy
CPT/HCPCS: 36415; 80053; 80305; 80320; 85025; 96372; 99285; J1630; J2060

== ENCOUNTER 2020-01-02 18:17 | Inpatient (IN) | payer MEDICARE, BC, MEDICAID ==
[~2020-01-02] VITALS: Ht 182.9 cm; Wt 122.4 kg
[~2020-01-02 18:17] MED LIST changes: -ATI1T PO; +EFF37.5XRC PO; +HYDR-3686 PO; -LEVE500T PO; +LEVE500T99 PO; +LORA-269 PO; -PROP10TA10 PO; +PROP20TA6 PO; -QUET25TA34 PO; -QUET50TA PO; +QUET50TA22 PO
[2020-01-02] MEDS ORDERED: mag hydrox/Alum hydrox/simeth 30ml oral suspension PO PRN (20:05)
[2020-01-02] MEDS ORDERED: loperamide 2mg capsule PO PRN (20:05)
[2020-01-02] MEDS ORDERED: magnesium hydroxide 30ml (MOM) UD suspension PO PRN (20:05)
[2020-01-02] MEDS ORDERED: acetaminophen 325mg tablet PO PRN ×2 (20:05)
[2020-01-02 20:06] VITALS: BP 116/93
[2020-01-02] MEDS ORDERED: QUEtiapine 25mg tablet PO PRN (20:35)
[2020-01-02] MEDS ORDERED: levetiracetam 250mg tablet PO ONE (20:35)
[2020-01-02] MEDS: diphenhydrAMINE 25mg capsule PO PRN (20:42)
[2020-01-02] MEDS: LORazepam 1 MG tablet PO PRN (20:42)
[2020-01-02] MEDS: haloperidol 5mg tablet PO PRN (20:42)
[2020-01-02] MEDS: divalproex sod 250mg ER (24-hour) tablet PO SCH (21:33)
--- NOTE | 2020-01-02 21:52 | NUR ---
ADMIT: Legal hold: 5150 Client on involuntary status for DTS Why are they here: Pt went to [facility] reporting that he woke up feeling like he wanted to kill himself with plan to slit his wrists in the shower. He reported while at [facility] that he felt he was unsafe to return home. Pt states he had a falling out with his parents because "I lied to them" and they wont talk to him. He states his apt clinical assessment manager will not let him come back home because his roommate brought his girlfriend to the apt and they arent allowed to have visitors. Pt is very upset about this. Assessment What has happened this shift: Pt arrived at 1925 accompanied by Niraj SORIA and Security. Pt reports feeling some dizzyness. Pt continues to endorse SI but will not discuss it. Pt states "I dont want to talk about it." Pt reports having pain but states "I have pain but Im not going to tell you where because I dont want you to help me." Skin check was completed and pt has bruise to right calf and self inflicted scratch beverly on the left side of his chest. Belongings check was completed by PCT Niraj. Pt became agitated shortly after arriving, screaming out and began punching himself in the head. Pt was redirected. Pt took PRN haldol, benadryl and ativan for agitation with good effect. Pt has hx of Autism, Bipolar II, OCD, ADHD. Pt has not been taking any meds for over a month. Pt states he doesnt like how alcohol makes him feel so he doesnt drink, however her reported 2-3 beers daily to [facility] staff. Pt states he smokes MJ "every other day" and smoked yesterday. States it makes him feel calm. Pts tox screen was positive for THC. Pt had a previous SA he states about 6 months ago and has been feeling depressed for about 2 weeks. He states he has a therapist appt in 2 weeks. Pt resting comfortably in bed after taking evening meds.
[2020-01-03] MEDS: venlafaxine XR 75mg capsule (Q24H) PO SCH ×2 (07:11→13:10)
[2020-01-03] MEDS: levetiracetam 250mg tablet PO SCH ×2 (07:12→20:35)
[2020-01-03] MEDS: haloperidol 5mg tablet PO SCH ×2 (07:12→20:34)
[2020-01-03] MEDS: LORazepam 0.5 MG tablet PO SCH ×3 (07:12→20:33)
[2020-01-03 07:27] LABS: HEMOGLOBIN A1C 5.6 % (4.5-6.2)
[2020-01-03 07:28] LABS: CHOL/HDL RATIO 3.5 (0.00-4.99); CHOLESTEROL 154 MG/DL (0-200); HDL CHOLESTEROL 44 MG/DL (35-60); LDL CHOLESTEROL 86 MG/DL (50-100); TRIGLYCERIDES 152 MG/DL (20-135)
[2020-01-03 08:17] VITALS: BP 142/66
--- NOTE | 2020-01-03 10:00 | NUR ---
This Clinicians goal for this process group were as follows: (1) Introduce and provide psychoeducation on Barfield ABC method. (2) Practice working through Barfield ABC method using examples provided by this Clinician. (3) Encourage Patients to process some of their own reoccurring situations utilizing Barfield ABC methodology. (4) Process Clients thoughts and reflections on this topic within the group milieu. Patient identified experiencing the following levels of anxiety, depression, and anger/irritability while present in the group milieu. Anxiety: 11/17 Depression: 11/17 Anger/irritability: 11/17 This Clinician introduced himself to Patient as this was the first time that he had attended a process group within the medical milieu. Patient sat down eating a snack at the back of the group room. He was dressed in green hospital scrubs. Patient only remained within the milieu long enough to provide answers to the scaling questions on his levels of depression, anxiety, and irritability on a scale of 1-10 (10 being high). Per this Clinician's impression, Patient presented with flat affect AEB [id number] visible facial expressions. Patient finished his snack and left the milieu quietly after about three minutes and did not return. He did not participate in the discussion on Barfield' ABC methodology. Jerry Rosado MA, EMERALD Addendum: 01/03/20 at 1141 by Jerry Rosado SS Amended: Links added.
[2020-01-03] MEDS: haloperidol 5mg tablet PO PRN (13:45)
[2020-01-03] MEDS: diphenhydrAMINE 25mg capsule PO PRN (13:45)
[2020-01-03] MEDS: LORazepam 1 MG tablet PO PRN (13:46)
--- NOTE | 2020-01-03 16:33 | NUR ---
Assessment SS engaged pt in completing his psychosocial assessment, discussed TOMI, pt jermaine SILVA & #9. Alexus Cooper, FILM PROCESSOR Addendum: 01/04/20 at 1634 by Alexus JORDAN Amended: Links added.
--- NOTE | 2020-01-03 17:51 | NUR ---
Nursing Progress Note: Legal hold: 5150 Expires 01/04 @ 1945 Client on involuntary status for DTS Report received from BLAZE Montanez with use of SBAR, Why are they here: Pt went to [facility] reporting that he woke up feeling like he wanted to kill himself with plan to slit his wrists in the shower. He reported while at [facility] that he felt he was unsafe to return home. Pt states he had a falling out with his parents because "I lied to them" and they wont talk to him. He states his apt manager medical device will not let him come back home because his roommate brought his girlfriend to the apt and they arent allowed to have visitors. Pt is very upset about this. Previous SA about 6 months ago and feeling depressed for about 2 weeks. Assessment What has happened this shift: Received patient up in his room at shift change. Patient reported not feeling well, feeling light headed. Vitals were obtained and WNL. Patient was assisted back to bed and given some water, will continue to monitor. Patient was woken up for breakfast then returned to his room and rested, no distress noted. Patient continues to endorse SI, but doesn't specify a plan. Patient is compliant with medications and 1:1 assessment. At times patient pretends to be asleep and will not speak with this flex o writer operator. Patient opens his eyes then immediately closes them. Patient is observed talking to himself during these moments. . Positive feedback and encouragement was applied,which seemed to be effective. This flex o writer operator heard a yell from patient' s room, upon contact patient reports feeling angry and "I don't deserve to live, I upset my family." This flex o writer operator was able to sit and talk with patient and patient calmed down and contracted for safety. A short time later patient shut door and held it closed not letting PCT in. This flex o writer operator along with CRN and security were able to get patient to open door - pt. appeared agitated and wouldn't speak to this flex o writer operator, he then hit wall. Patient was administered an oral B-52 with effect. Patient is sleeping with no distress noted. Patient has abrasion left upper chest that was present on admit, photograph obtained and placed in chart. Attempted to clean area, but patient refused. S/I, H/I: Patient denies, but states "I don't deserve to live." A/VH: Patient denies, but appears to be preoccupied. Sleep: Intermittently sleeping after B-52 administered. ADL's: Needs prompting Group attendance: No group Were meds taken: Yes without hesitation. Any med S/E: None reported or observed. Mental Status Exam Appearance: Disheveled, wearing green unit scrubs. Eye contact: Poor Behavior: Cooperative, agitated, guarded. Speech: Soft, tense, normal rate/rhythm, minimal Mood: Depressed, agitated. Affect: Flat Thought process: Circumstantial Thought Content: Unable to assess. Cognition: Insight: Poor Judgment: Poor Interventions PRN's used: 2mg Ativan, 50mg Benadryl, 5mg Haldol Therapeutic interventions: 1:1 therapeutic assessment, reality orientation, provided active listening, medication administration/monitoring for behavior change, Q15 min safety check. Restraints/seclusion/emergency medication: N/A Justification of Continued Inpatient Treatment: Patient needs interruption of current crisis with medication adjustment in a safe and therapeutic environment.
[2020-01-03] MEDS ORDERED: NICOTINE POLACRILEX 2 MG LOZENGE BC PRN (18:05)
[2020-01-03 20:00] VITALS: BP 110/53
[2020-01-03] MEDS: traZODone 50mg tablet PO PRN (20:33)
[2020-01-03] MEDS: divalproex sod 250mg ER (24-hour) tablet PO SCH (20:36)
--- NOTE | 2020-01-04 00:27 | NUR ---
Nursing Progress Note: Legal hold: 5150 Expires 01/04 @ 1945 Client on involuntary status for DTS Report received from BLAZE Rivera with use of SBAR, Why are they here: Pt went to [facility] reporting that he woke up feeling like he wanted to kill himself with plan to slit his wrists in the shower. He reported while at [facility] that he felt he was unsafe to return home. Pt states he had a falling out with his parents because "I lied to them" and they wont talk to him. He states his apt traffic operations manager will not let him come back home because his roommate brought his girlfriend to the apt and they arent allowed to have visitors. Pt is very upset about this. Previous SA about 6 months ago and feeling depressed for about 2 weeks. Assessment What has happened this shift: Pt seeking oncoming nurse at change of shift, to see who is taking care of me. Pt cooperative with most assessment but would not let this technical writer assess his wound nor would he allow his temperature to be obtained. Pt states he doesnt feel suicidal at the moment, because he prayed about it and its not worth it [to be suicidal]. Pt answers questions minimally and at times ignored this technical writer altogether. Pt attempted to call family x2 because he wanted to apologize for his behavior and felt anxious when he could not get reach them. This technical writer did breathing exercises and gave pt tea, along with his medications which included Ativan. Pt stated he felt better, and went to sleep. S/I, H/I: Denies A/VH: Denies Both Sleep: See Sleep Assessment. ADL's: Needs prompting Group attendance: N/A Were meds taken: Yes Any med S/E: None reported or observed. Mental Status Exam Appearance: Clean, wearing unit green scrubs and nonskid socks Eye contact: Fair Behavior: Cooperative, Guarded, Isolates to room Speech: Soft, tense, normal rate/rhythm, minimal Mood: Depressed, Anxious Affect: Flat Thought process: Linear Thought Content: Feeling he disappointed his family Cognition: A/Ox4 Insight: Poor Judgment: Poor Interventions PRN's used: Trazodone 50mg Therapeutic interventions: 1:1 therapeutic assessment, reality orientation, provided active listening, medication administration/monitoring for behavior change, Q15 min safety check. Restraints/seclusion/emergency medication: N/A Justification of Continued Inpatient Treatment: Patient needs interruption of current crisis with medication adjustment in a safe and therapeutic environment.
[2020-01-04] MEDS: LORazepam 1 MG tablet PO PRN ×2 (06:45→19:16)
[2020-01-04 07:38] VITALS: BP 103/67
[2020-01-04] MEDS ORDERED: nicotine 21mg patch - 24 hr TD SCH (08:00)
[2020-01-04] MEDS: venlafaxine XR 75mg capsule (Q24H) PO SCH ×2 (08:27→13:09)
[2020-01-04] MEDS: levetiracetam 250mg tablet PO SCH ×2 (08:27→20:41)
[2020-01-04] MEDS: LORazepam 0.5 MG tablet PO SCH ×3 (08:27→20:41)
[2020-01-04] MEDS: haloperidol 5mg tablet PO SCH ×2 (08:28→20:40)
--- NOTE | 2020-01-04 15:43 | NUR ---
Nursing Progress Note: Legal hold: 5150 Expires 01/04 @ 1945 Client on involuntary status for DTS Report received from Fadia Da Silva RN with use of SBAR, Why are they here: Pt went to [facility] reporting that he woke up feeling like he wanted to kill himself with plan to slit his wrists in the shower. He reported while at [facility] that he felt he was unsafe to return home. Pt states he had a falling out with his parents because "I lied to them" and they wont talk to him. He states his apt mutuel department manager will not let him come back home because his roommate brought his girlfriend to the apt and they arent allowed to have visitors. Pt is very upset about this. Previous SA about 6 months ago and feeling depressed for about 2 weeks. Assessment What has happened this shift: Received Ronaldo sitting in hallway chair at shift change. Patient requested something for anxiety upon meeting. Administered 1mg Ativan and educated patient how to deep breathe to help decrease anxious feeling. Patient denies SI "I am not suicidal anymore." "I have a lot to live for," pt. relates this to compliance with medication. This film writer reminded patient that when he starts to feel angry or anxious to use his coping skills and come and talk to me. Patient had some intermittent times of anxiety, but pt. was able to be redirected. Patient became agitated at one point r/t not being able to get a hold of his parents. Patient states they had an argument prior to his admit. Patient later told this film writer that he got a hold of his mom, they are out of town and will be home next week. This gave patient much relief. Pt. is noted to have intermittent hand tremors - notified JOHNNY Guerrero. S/I, H/I: Patient denies, "I am not suicidal anymore, I have a lot to live for." A/VH: Patient denies, but appears to be preoccupied. Sleep: Per Sleep Assessment pt slept 8 hours. ADL's: Needs prompting Group attendance: Did not attend group. Were meds taken: Yes without hesitation. Any med S/E: Intermittent hand tremors. Mental Status Exam Appearance: Disheveled, wearing green unit scrubs. Eye contact: Fair Behavior: Cooperative, guarded, isolates to room. Speech: Soft, more talkative, normal rate/rhythm, minimal Mood: Anxious Affect: Flat Thought process: Circumstantial Thought Content: Misses his family. Cognition: A&O x3 Insight: Poor Judgment: Poor Interventions PRN's used: Ativan x1 Therapeutic interventions: 1:1 therapeutic assessment, reality orientation, provided active listening, medication administration/monitoring for behavior change, educated on deep breating exercises, Q15 min safety check. Restraints/seclusion/emergency medication: N/A Justification of Continued Inpatient Treatment: Patient needs interruption of current crisis with medication adjustment in a safe and therapeutic environment.
--- NOTE | 2020-01-04 16:35 | NUR ---
MNP Presenting Issues: Pt's admitted to [facility] via a 5150, pt mood, affect & thought process have improved since admission. [facility] expressed interest in working w/pt upon d/c and is holding a bed for him. Interventions: SS met w/pt and engaged him in dcp activities, informed him of [facility]'s offer, pt is agreeable to go to [facility] following d/c. 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 Pt's alert & oriented x4, has some insight into his ND and acknowledged that his use of substances had worsened his MH. SS had t/c w/[facility] Steward/Stewardess Third Class-Danielle to coordinate pt's access to [facility] upon d/c. Per t/c, pt will interview w/[facility] on Tuesday and possibly d/c Tuesday afternoon pending physician's eval. Plan: Pt to go to [facility] upon d/c. Alexus Cooper LCSW Addendum: 01/04/20 at 1701 by Alexus Cooper SS Amended: Links added. Addendum: 01/04/20 at 1710 by Alexus Cooper SS Note entered in wrong chart, disregard note. Alexus Cooper, WOOD CAR BUILDER
--- NOTE | 2020-01-04 17:43 | NUR ---
Assessment Presenting Issues: Pt's 5150 will on Tuesday early in the morning. Pt may not require a 5250 and therefore, need a suicide risk assessment prior to d/c. Interventions: SS met w/pt and engaged him in completing a Scroggins Suicide Severity Rating Scale-Inpatient D/c version. Per assessment, pt responded positively to items associated with SI, Thoughts & plan and pt is significantly impulsive therefore, pt will require a safety plan prior to d/c. Plan: SS will consult w/Tuesday Clinician to facilitate Safety Planning in the event that pt is d/c over the weekend. Alexus Cooper LCSW Addendum: 01/04/20 at 1749 by Alexus Cooper Amended: Links added.
[2020-01-04 18:33] LABS: BASOPHILS # (AUTO) 0.1 X10'3 (0-0.2); BASOPHILS % (AUTO) 0.7 % (0-1); EOSINOPHILS # (AUTO) 0.1 X10'3 (0-0.9); EOSINOPHILS % (AUTO) 0.7 % (0-6); HEMOGLOBIN 14.1 g/dl (14.0-17.9); LYMPHOCYTES # (AUTO) 2.9 X10'3 (1.1-4.8); LYMPHOCYTES % (AUTO) 34.2 % (21-51); MEAN CORPUSCULAR HEMOGLOBIN 30.3 PG (27.0-31.0); MEAN CORPUSCULAR HGB CONC 34.3 g/dL (33.0-36.5); MEAN CORPUSCULAR VOLUME 88.3 FL (78-98); MEAN PLATELET VOLUME 7.8 FL (7.4-10.4); MONOCYTES # (AUTO) 0.6 X10'3 (0-0.9); NEUTROPHILS # (AUTO) 4.9 X10'3 (1.8-7.7); NEUTROPHILS % (AUTO) 57.4 % (42-75); PLATELET COUNT 293 X10'3 (140-440); RED BLOOD COUNT 4.64 X10'6 (4.70-6.10); WHITE BLOOD COUNT 8.6 X10'3 (4.5-11.0)
[2020-01-04 19:45] LABS: ALANINE AMINOTRANSFERASE 30 U/L (12-78); ALBUMIN/GLOBULIN RATIO 0.9 (1.1-1.5); ALKALINE PHOSPHATASE 93 IU/L (46-116); ANION GAP 11 (8-16); ASPARTATE AMINO TRANSFERASE 19 U/L (10-37); BILIRUBIN,TOTAL 0.5 MG/DL (0.1-1.0); BLOOD UREA NITROGEN 15 MG/DL (7-18); BUN/CREATININE RATIO 13.2 (5.4-32.0); CALCIUM 9.1 MG/DL (8.5-10.1); CHLORIDE 101 MMOL/L (99-107); CREATININE 1.14 MG/DL (0.60-1.10); GLUCOSE 87 MG/DL (70-104); POTASSIUM 3.7 MMOL/L (3.5-5.1); SODIUM 137 MMOL/L (135-145); TOTAL PROTEIN 8.3 G/DL (6.4-8.2); eGFR 78 ML/MIN
[2020-01-04 20:00] VITALS: BP 125/80
[2020-01-04 20:05] LABS: VALPROATE 93 UG/ML (50-100)
[2020-01-04] MEDS: traZODone 50mg tablet PO PRN (20:41)
[2020-01-04] MEDS: divalproex sod 250mg ER (24-hour) tablet PO SCH (20:43)
--- NOTE | 2020-01-05 04:02 | NUR ---
Nursing Progress Note: Legal hold: 5150 Expires 01/04 @ 1945 Client on involuntary status for DTS Report received from BLAZE Rivera with use of SBAR Why are they here: Pt went to [facility] reporting that he woke up feeling like he wanted to kill himself with plan to slit his wrists in the shower. He reported while at [facility] that he felt he was unsafe to return home. Pt states he had a falling out with his parents because "I lied to them" and they wont talk to him. He states his apt distribution operations manager will not let him come back home because his roommate brought his girlfriend to the apt and they arent allowed to have visitors. Pt is very upset about this. Previous SA about 6 months ago and feeling depressed for about 2 weeks. Assessment What has happened this shift: Pt sitting in the hallway at change of shift. During assessment, pt stated he no longer feels suicidal and is ready to go home, "but a little anxious about it." By the end of the conversation, pt requested PRN Ativan to good effect. Pt continues to mostly isolate to self, but was observed to be out on the unit more than last night. He requested his medications early as "I only slept okay last night" and this show card writer informed him he'd have to wait; pt was understanding and said "Oh, well, that's okay." Pt watched some TV after snack then returned to his room. Pt requested tea after HS medication administration then went to sleep. S/I, H/I: Denies A/VH: Denies Both Sleep: See Sleep Assessment. ADL's: Needs prompting Group attendance: N/A Were meds taken: Yes Any med S/E: None reported or observed. Mental Status Exam Appearance: Clean, wearing unit green scrubs and nonskid socks Eye contact:Good Behavior: Cooperative, Sitting in hallway chair, watching some TV, attended snack Speech: Soft, tense, normal rate/rhythm, minimal Mood: "Good", Anxious Affect: Flat Thought process: Linear Thought Content: Feeling better and looking forward to discharge Cognition: A/Ox4 Insight: Fair Judgment: Fair to good Interventions PRN's used: Trazodone 50mg for sleep, Ativan 1mg for anxiety Therapeutic interventions: 1:1 therapeutic assessment, reality orientation, provided active listening, medication administration/monitoring for behavior change, Q15 min safety check. Restraints/seclusion/emergency medication: N/A Justification of Continued Inpatient Treatment: Per MD, pt is improved and looking at discharge tomorrow back to his apartment.
[2020-01-05] MEDS: LORazepam 0.5 MG tablet PO SCH ×2 (07:40→13:14)
[2020-01-05] MEDS: venlafaxine XR 75mg capsule (Q24H) PO SCH ×2 (07:40→13:14)
[2020-01-05] MEDS: haloperidol 5mg tablet PO SCH (07:40)
[2020-01-05] MEDS: levetiracetam 250mg tablet PO SCH (07:40)
[2020-01-05 08:00] VITALS: BP 123/80
[2020-01-05] MEDS ORDERED: nicotine 21mg patch - 24 hr TD SCH (08:00)
[2020-01-05] MEDS ORDERED: VENL75CA61 PO (10:57)
[2020-01-05] MEDS ORDERED: LEVE500T99 PO (10:57)
[2020-01-05] MEDS ORDERED: DIVA500T9 PO (10:57)
[2020-01-05] MEDS ORDERED: HALO5TAB PO ×2 (10:57)
[2020-01-05] MEDS ORDERED: TRAZ-251 PO (10:57)
[2020-01-05] MEDS ORDERED: Lorazepam PO (10:57)
[2020-01-05] MEDS ORDERED: LORazepam 1 MG tablet PO ONE (13:15)
[2020-01-05] MEDS ORDERED: levetiracetam 250mg tablet PO ONE (13:15)
[2020-01-05] MEDS ORDERED: venlafaxine 25mg tablet PO ONE (13:15)
[2020-01-05] MEDS ORDERED: haloperidol 5mg tablet PO ONE (13:15)
[2020-01-05] MEDS ORDERED: divalproex sod 250mg ER (24-hour) tablet PO SCH (13:30)
--- NOTE | 2020-01-05 15:16 | NUR ---
DISCHARGE NOTE Patient was discharged at 1500 Patient was escorted by YANG France to a waiting cab. Patient will be driven home. Reviewed discharge instructions with patient. Patient was provided with follow up appointment. Received bedside medications per JOHNNY Abdi, patient educated and verbalized understanding of meds, dose and when to take. Pt. verbalized understanding. Patient denies all MH symptoms. Patient left w/personal belongings from chart and clothing from [facility] clothing closet. When asked what is the first thing your going to do when you get home, "Sit on porch listen to music and drink coffee." Patient remains calm and cooperative this shift. Compliant with care and medications. No somatic complaints reported.
== END 2020-01-05 15:00 | disposition home or self-care (01) | DRG 885 ==
LOC: ADULT MH 19:39
PROVIDERS: ADMIT Psychiatry & Neurology Psychiatry; ATTEND Psychiatry & Neurology Psychiatry
DX: F33.3 Major depressive disorder, recurrent, severe with psychotic symptoms (principal); R45.851 Suicidal ideations; F14.20 Cocaine dependence, uncomplicated; F15.20 Other stimulant dependence, uncomplicated; Q21.1 Atrial septal defect; G40.909 Epilepsy, unspecified, not intractable, without status epilepticus; F41.1 Generalized anxiety disorder; F84.9 Pervasive developmental disorder, unspecified; F84.0 Autistic disorder; F10.10 Alcohol abuse, uncomplicated; F12.10 Cannabis abuse, uncomplicated; F17.210 Nicotine dependence, cigarettes, uncomplicated; E66.3 Overweight; Z68.36 Body mass index [BMI] 36.0-36.9, adult; Z71.6 Tobacco abuse counseling; Z71.51 Drug abuse counseling and surveillance of drug abuser; Z79.899 Other long term (current) drug therapy
CPT/HCPCS: 36415; 80053; 80061; 80164; 83036; 85025; 87081; Q0163

== ENCOUNTER 2020-03-25 10:19 | Outpatient (CLI) | payer MEDICARE, OTHER, MEDICAID ==
[~2020-03-25 10:19] MED LIST changes: -ARIP400S3 IM; +DIVA500T9 PO; -EFF37.5XRC PO; -LORA-269 PO; +Lorazepam PO; -NICO-687 TOP; -PROP20TA6 PO; -QUET50TA22 PO; +TRAZ-251 PO; +VENL75CA61 PO
== END 2020-03-25 23:59 | disposition home or self-care (01) ==
LOC: RAD 10:19
DX: F44.5 Conversion disorder with seizures or convulsions (principal)
CPT/HCPCS: 95819

== ENCOUNTER 2020-04-09 17:58 | Emergency (ER) | payer MEDICARE, OTHER, MEDICAID ==
[~2020-04-09] VITALS: Ht 175.3 cm; Wt 122.7 kg
[2020-04-09] MEDS ORDERED: GABA300C PO (18:38)
[2020-04-09] MEDS ORDERED: DIVA500T2 PO (18:38)
[2020-04-09] MEDS ORDERED: BENZ1TAB7 PO (18:38)
[2020-04-09] MEDS ORDERED: BUPR-94 PO (18:38)
--- NOTE | 2020-04-09 18:39 | NUR ---
Pt.'s father, Parth, called informed me he is medical POA and provided up to date home medication list. [phone]. Pt.'s mother Nichole [phone]
[2020-04-09 19:12] LABS: BLOOD UREA NITROGEN 9 MG/DL (7-18); BUN/CREATININE RATIO 9.5 (5.4-32.0); CALCIUM 9.3 MG/DL (8.5-10.1); CREATININE 0.95 MG/DL (0.60-1.10); ETHANOL < 0.010 GM/DL (0.0-0.010); GLUCOSE 97 MG/DL (70-104); eGFR > 90 ML/MIN
[2020-04-09 19:13] LABS: ALANINE AMINOTRANSFERASE 31 U/L (12-78); ALKALINE PHOSPHATASE 62 IU/L (46-116); ANION GAP 7 (8-16); ASPARTATE AMINO TRANSFERASE 21 U/L (10-37); BILIRUBIN,TOTAL 0.3 MG/DL (0.1-1.0); CHLORIDE 104 MMOL/L (99-107); POTASSIUM 3.9 MMOL/L (3.5-5.1); SODIUM 136 MMOL/L (135-145); TOTAL CARBON DIOXIDE 24.9 MMOL/L (24-32); TOTAL PROTEIN 8.1 G/DL (6.4-8.2)
[2020-04-09 19:16] LABS: BASOPHILS % (AUTO) 0.3 % (0-1); EOSINOPHILS # (AUTO) 0.3 X10'3 (0-0.9); EOSINOPHILS % (AUTO) 2.5 % (0-6); HEMOGLOBIN 15.1 g/dl (14.0-17.9); LYMPHOCYTES # (AUTO) 2.9 X10'3 (1.1-4.8); LYMPHOCYTES % (AUTO) 27.2 % (21-51); MEAN CORPUSCULAR HEMOGLOBIN 30.8 PG (27.0-31.0); MEAN CORPUSCULAR HGB CONC 34.4 g/dL (33.0-36.5); MEAN CORPUSCULAR VOLUME 89.5 FL (78-98); MEAN PLATELET VOLUME 8.9 FL (7.4-10.4); MONOCYTES # (AUTO) 0.2 X10'3 (0-0.9); MONOCYTES % (AUTO) 1.5 % (2-12); NEUTROPHILS # (AUTO) 7.4 X10'3 (1.8-7.7); NEUTROPHILS % (AUTO) 68.5 % (42-75); PLATELET COUNT 269 X10'3 (140-440); RED BLOOD COUNT 4.91 X10'6 (4.70-6.10); RED CELL DISTRIBUTION WIDTH 13.5 % (11.5-14.5); WHITE BLOOD COUNT 10.8 X10'3 (4.5-11.0)
[2020-04-09 20:06] LABS: URINE AMPHETAMINE SCREEN NEGATIVE (Neg); URINE BARBITUATE SCREEN NEGATIVE (Neg); URINE BENZODIAZEPINES SCREEN NEGATIVE (Neg); URINE CANNABINOID SCREEN NEGATIVE (Neg); URINE COCAINE SCREEN NEGATIVE (Neg); URINE METHADONE SCREEN NEGATIVE (Neg); URINE OPIATE SCREEN NEGATIVE (Neg); URINE PHENCYCLIDINE SCREEN NEGATIVE (Neg)
[2020-04-09] MEDS ORDERED: LORazepam 1 MG tablet PO ONE (20:10)
[2020-04-09] MEDS ORDERED: LORazepam 2 mg/ml vial ONE (20:19)
[2020-04-09] MEDS ORDERED: LORazepam 2 mg/ml vial IM ONE (20:20)
[2020-04-09] MEDS ORDERED: Levetiracetam-NS 500mg/100ml 100 ML IV ONE (20:25)
[2020-04-09] MEDS ORDERED: LORazepam 2 mg/ml vial IV ONE (20:25)
[2020-04-09 20:38] LABS: VALPROATE 47 UG/ML (50-100)
[2020-04-09] MEDS ORDERED: haloperidol lactate 5mg/ml inj IM ONE (20:45)
[2020-04-10 06:20] VITALS: BP 106/74
--- NOTE | 2020-04-10 06:47 | NUR ---
pt sleeping in bed, no distress noted, will continue to monitor.
--- NOTE | 2020-04-10 07:10 | NUR ---
Package Faxed to [place] [facility].
[2020-04-10] MEDS ORDERED: divalproex sodium 500mg tablet.DR PO SCH (08:00)
[2020-04-10] MEDS ORDERED: benztropine 1mg tablet PO SCH (08:00)
[2020-04-10] MEDS ORDERED: buPROPion SR 150mg tablet PO SCH (08:00)
[2020-04-10] MEDS: gabapentin 300mg capsule PO SCH ×2 (08:24)
--- NOTE | 2020-04-10 09:30 | NUR ---
Adam MONK, speaking with patient.
== END 2020-04-10 11:09 | disposition home or self-care (01) ==
LOC: ER 17:58
DX: F32.9 Major depressive disorder, single episode, unspecified (principal); F41.9 Anxiety disorder, unspecified; F29 Unspecified psychosis not due to a substance or known physiological condition; F12.90 Cannabis use, unspecified, uncomplicated; F15.90 Other stimulant use, unspecified, uncomplicated; Z88.8 Allergy status to other drugs, medicaments and biological substances; Z79.899 Other long term (current) drug therapy
CPT/HCPCS: 36415; 80053; 80164; 80305; 80320; 85025; 96372; 96374; 99285; J1630; J2060

== ENCOUNTER 2020-06-16 14:45 | Emergency (ER) | payer MEDICARE, OTHER, MEDICAID ==
[~2020-06-16] VITALS: Ht 175.3 cm; Wt 124.9 kg
[~2020-06-16 14:45] MED LIST changes: +BENZ1TAB7 PO; +BUPR-94 PO; +DIVA500T2 PO; -DIVA500T9 PO; +GABA300C PO; -HALO5TAB PO; -HYDR-3686 PO; -LEVE500T99 PO; -Lorazepam PO; -TRAZ-251 PO; -VENL75CA61 PO
--- NOTE | 2020-06-16 15:28 | NUR ---
Patient having a mild tonic clonic seizure. Only slight movement to body face and arms. RN placed pulse Ox on patient. Patient oxygen 98%, HR 107. Dr Marin called to observe seizure and ordered 1 mg Ativan IM. Continue to monitor.
[2020-06-16] MEDS ORDERED: LORazepam 2 mg/ml vial IM ONE (15:30)
[2020-06-16 15:42] LABS: URINE AMPHETAMINE SCREEN NEGATIVE (Neg); URINE BARBITUATE SCREEN NEGATIVE (Neg); URINE BENZODIAZEPINES SCREEN NEGATIVE (Neg); URINE CANNABINOID SCREEN NEGATIVE (Neg); URINE COCAINE SCREEN NEGATIVE (Neg); URINE METHADONE SCREEN NEGATIVE (Neg); URINE OPIATE SCREEN NEGATIVE (Neg); URINE PHENCYCLIDINE SCREEN NEGATIVE (Neg)
--- NOTE | 2020-06-16 15:45 | NUR ---
Seizure lasted about 5 minutes. Patient is postictal. Continue to monitor.
[2020-06-16 16:05] LABS: BASOPHILS # (AUTO) 0.1 X10'3 (0-0.2); BASOPHILS % (AUTO) 1.4 % (0-1); EOSINOPHILS # (AUTO) 0.1 X10'3 (0-0.9); EOSINOPHILS % (AUTO) 1.1 % (0-6); HEMATOCRIT 39.9 % (42.0-52.0); HEMOGLOBIN 13.8 g/dl (14.0-17.9); LYMPHOCYTES # (AUTO) 2.6 X10'3 (1.1-4.8); LYMPHOCYTES % (AUTO) 34.9 % (21-51); MEAN CORPUSCULAR HEMOGLOBIN 30.3 PG (27.0-31.0); MEAN CORPUSCULAR HGB CONC 34.5 g/dL (33.0-36.5); MEAN PLATELET VOLUME 8.4 FL (7.4-10.4); MONOCYTES # (AUTO) 0.5 X10'3 (0-0.9); NEUTROPHILS # (AUTO) 4.3 X10'3 (1.8-7.7); NEUTROPHILS % (AUTO) 56.6 % (42-75); PLATELET COUNT 246 X10'3 (140-440); RED BLOOD COUNT 4.54 X10'6 (4.70-6.10); WHITE BLOOD COUNT 7.6 X10'3 (4.5-11.0)
[2020-06-16 16:21] LABS: ALANINE AMINOTRANSFERASE 30 U/L (12-78); ALBUMIN 3.8 G/DL (3.4-5.0); ALKALINE PHOSPHATASE 70 IU/L (46-116); ANION GAP 11 (8-16); ASPARTATE AMINO TRANSFERASE 23 U/L (10-37); BILIRUBIN,TOTAL 0.3 MG/DL (0.1-1.0); BLOOD UREA NITROGEN 12 MG/DL (7-18); BUN/CREATININE RATIO 11.9 (5.4-32.0); CALCIUM 8.7 MG/DL (8.5-10.1); CHLORIDE 106 MMOL/L (99-107); CREATININE 1.01 MG/DL (0.60-1.10); GLUCOSE 100 MG/DL (70-104); POTASSIUM 3.8 MMOL/L (3.5-5.1); SODIUM 141 MMOL/L (135-145); TOTAL CARBON DIOXIDE 23.9 MMOL/L (24-32); TOTAL PROTEIN 7.6 G/DL (6.4-8.2); eGFR 90 ML/MIN
[2020-06-16 16:22] LABS: ETHANOL < 0.010 GM/DL (0.0-0.010); VALPROATE 38 UG/ML (50-100)
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
--- NOTE | 2020-06-16 17:45 | NUR ---
Xray with patient for right hand xray.
--- NOTE | 2020-06-16 19:15 | NUR ---
REPORT FROM BLAZE DOOLEY. PATIENT SLEEPING ON HIS RIGHT SIDE, RR EVEN AND UNLABORED
[2020-06-16] MEDS ORDERED: benztropine 1mg tablet PO SCH (20:00)
[2020-06-16] MEDS ORDERED: divalproex sodium 500mg tablet.DR PO SCH (20:00)
--- NOTE | 2020-06-16 20:01 | NUR ---
BLAZE CARROLL FROM [facility] AT BEDSIDE. PATIENT WOKE UP AND WITH GUIDANCE MOVED HIMSELF UP IN BED. PATIENT DENIES SI/HI AT HIS TIME.
--- NOTE | 2020-06-16 20:46 | NUR ---
PATIENT IS TO BE DISCHARGED HOME. HE HAS A MENTAL HEALTH APPOINTMENT AT 0900.
--- NOTE | 2020-06-16 20:47 | NUR ---
FATHER KAROLYN [phone] PICK PATIENT UP AT THE ER ENTRANCE AT 1659
[2020-06-16] MEDS ORDERED: gabapentin 300mg capsule PO SCH (21:00)
[2020-06-16 21:10] VITALS: BP 115/78
[2020-06-17] MEDS ORDERED: buPROPion SR 150mg tablet PO SCH (08:00)
== END 2020-06-16 21:22 | disposition home or self-care (01) ==
LOC: ER 14:46
DX: F25.9 Schizoaffective disorder, unspecified (principal); F41.9 Anxiety disorder, unspecified; F43.10 Post-traumatic stress disorder, unspecified; F32.9 Major depressive disorder, single episode, unspecified; F12.90 Cannabis use, unspecified, uncomplicated; F15.90 Other stimulant use, unspecified, uncomplicated; F14.90 Cocaine use, unspecified, uncomplicated; Z88.8 Allergy status to other drugs, medicaments and biological substances; Z79.899 Other long term (current) drug therapy
CPT/HCPCS: 36415; 73120; 80053; 80164; 80305; 80320; 85025; 96372; 99284; J2060

== ENCOUNTER 2020-09-28 21:06 | Emergency (ER) | payer MEDICARE, MEDICAID ==
[~2020-09-28] VITALS: Ht 175.3 cm; Wt 115.3 kg
[2020-09-28 21:12] VITALS: BP 168/84
--- NOTE | 2020-09-28 21:38 | NUR ---
Parth Lantigua [phone]. Father has med req to give to RN- RN made aware.
[2020-09-28] MEDS ORDERED: diphenhydrAMINE 25mg capsule PO ONE (21:50)
[2020-09-28] MEDS ORDERED: haloperidol 5mg tablet PO ONE (21:50)
[2020-09-28] MEDS ORDERED: LORazepam 1 MG tablet PO ONE (21:50)
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
--- NOTE | 2020-09-28 22:16 | NUR ---
The patient stated he wants to . His behaviors are bizarre. He reports HI towards [employer] and [employer].
[2020-09-28 22:29] LABS: CLARITY,URINE CLEAR (Clear); COLOR,URINE YELLOW (Yellow); GLUCOSE, URINE NEGATIVE (Neg); KETONES,URINE NEGATIVE (Neg); LEUKOCYTE ESTERASE ,URINE NEGATIVE (Neg); NITRITES, URINE NEGATIVE (Neg); OCCULT BLOOD,URINE NEGATIVE (Neg); PROTEIN,URINE NEGATIVE (Neg); UROBILINOGEN,URINE 0.2 E.U/dL (0.2-1.0)
[2020-09-28 22:30] LABS: BASOPHILS # (AUTO) 0.2 X10'3 (0-0.2); BASOPHILS % (AUTO) 1.5 % (0-1); EOSINOPHILS # (AUTO) 0.1 X10'3 (0-0.9); EOSINOPHILS % (AUTO) 1.1 % (0-6); HEMATOCRIT 43.5 % (42.0-52.0); HEMOGLOBIN 14.9 g/dl (14.0-17.9); LYMPHOCYTES # (AUTO) 5.6 X10'3 (1.1-4.8); LYMPHOCYTES % (AUTO) 47.1 % (21-51); MEAN CORPUSCULAR HEMOGLOBIN 30.9 PG (27.0-31.0); MEAN CORPUSCULAR HGB CONC 34.3 g/dL (33.0-36.5); MEAN CORPUSCULAR VOLUME 90.1 FL (78-98); MONOCYTES # (AUTO) 0.8 X10'3 (0-0.9); MONOCYTES % (AUTO) 6.6 % (2-12); NEUTROPHILS # (AUTO) 5.2 X10'3 (1.8-7.7); NEUTROPHILS % (AUTO) 43.7 % (42-75); PLATELET COUNT 256 X10'3 (140-440); RED BLOOD COUNT 4.82 X10'6 (4.70-6.10); RED CELL DISTRIBUTION WIDTH 13.7 % (11.5-14.5); WHITE BLOOD COUNT 11.9 X10'3 (4.5-11.0)
[2020-09-28 22:36] LABS: ALANINE AMINOTRANSFERASE 38 U/L (12-78); ALKALINE PHOSPHATASE 79 IU/L (46-116); ANION GAP 13 (8-16); ASPARTATE AMINO TRANSFERASE 26 U/L (10-37); BILIRUBIN,TOTAL 0.4 MG/DL (0.1-1.0); BLOOD UREA NITROGEN 7 MG/DL (7-18); BUN/CREATININE RATIO 7.4 (5.4-32.0); CALCIUM 9.2 MG/DL (8.5-10.1); CHLORIDE 104 MMOL/L (99-107); CREATININE 0.95 MG/DL (0.60-1.10); ETHANOL < 0.010 GM/DL (0.0-0.010); GLUCOSE 93 MG/DL (70-104); POTASSIUM 3.4 MMOL/L (3.5-5.1); SODIUM 142 MMOL/L (135-145); TOTAL CARBON DIOXIDE 25.3 MMOL/L (24-32); TOTAL PROTEIN 7.9 G/DL (6.4-8.2); eGFR > 90 ML/MIN
[2020-09-28 22:37] LABS: URINE AMPHETAMINE SCREEN NEGATIVE (Neg); URINE BARBITUATE SCREEN NEGATIVE (Neg); URINE BENZODIAZEPINES SCREEN NEGATIVE (Neg); URINE CANNABINOID SCREEN NEGATIVE (Neg); URINE COCAINE SCREEN NEGATIVE (Neg); URINE METHADONE SCREEN NEGATIVE (Neg); URINE OPIATE SCREEN NEGATIVE (Neg); URINE PHENCYCLIDINE SCREEN NEGATIVE (Neg)
--- NOTE | 2020-09-28 22:37 | NUR ---
Patient's father, Parth [phone]
[2020-09-28 22:39] LABS: UA COLLECTION TYPE CLN CATCH MIDSTREAM
[2020-09-28] MEDS ORDERED: DIVA125T31 PO (22:39)
[2020-09-28 23:28] LABS: VALPROATE 54 UG/ML (50-100)
[2020-09-28] MEDS: divalproex sod 125mg tablet.DR PO SCH (23:57)
[2020-09-28] MEDS: gabapentin 300mg capsule PO SCH (23:57)
--- NOTE | 2020-09-29 00:10 | NUR ---
The patient appears to be sleeping.
--- NOTE | 2020-09-29 01:38 | NUR ---
The patient appears to be sleeping
--- NOTE | 2020-09-29 03:39 | NUR ---
The patient appears to be sleeping
--- NOTE | 2020-09-29 04:41 | NUR ---
The patient appears to be sleeping
--- NOTE | 2020-09-29 05:39 | NUR ---
The patient appears to be sleeping
--- NOTE | 2020-09-29 06:47 | NUR ---
Patient sleeping supine. No distress observed. Continue to monitor.
[2020-09-29] MEDS ORDERED: benztropine 1mg tablet PO SCH (08:00)
[2020-09-29] MEDS ORDERED: buPROPion SR 150mg tablet PO SCH (08:00)
--- NOTE | 2020-09-29 08:20 | NUR ---
Patient taking medication. No distress observed. Continue to monitor.
[2020-09-29] MEDS: divalproex sod 125mg tablet.DR PO SCH (08:41)
[2020-09-29] MEDS: gabapentin 300mg capsule PO SCH (08:41)
--- NOTE | 2020-09-29 09:35 | NUR ---
[facility], Adam, evaluating patient. No distress observed. Continue to monitor.
== END 2020-09-29 10:53 | disposition home or self-care (01) ==
LOC: ER 21:07
DX: R45.851 Suicidal ideations (principal); Z20.822 Contact with and (suspected) exposure to COVID-19; R45.850 Homicidal ideations; F41.9 Anxiety disorder, unspecified; F32.9 Major depressive disorder, single episode, unspecified; F12.90 Cannabis use, unspecified, uncomplicated; F15.90 Other stimulant use, unspecified, uncomplicated; F14.90 Cocaine use, unspecified, uncomplicated; F19.90 Other psychoactive substance use, unspecified, uncomplicated; Z88.8 Allergy status to other drugs, medicaments and biological substances; Z79.899 Other long term (current) drug therapy
CPT/HCPCS: 36415; 80053; 80164; 80305; 80320; 81003; 85025; 87426; 99285; Q0163

== ENCOUNTER 2020-10-05 12:41 | Emergency (ER) | payer MEDICARE, MEDICAID ==
[~2020-10-05] VITALS: Ht 175.3 cm; Wt 104.5 kg
[~2020-10-05 12:41] MED LIST changes: +DIVA125T31 PO; -DIVA500T2 PO
[2020-10-05 13:33] LABS: BASOPHILS # (AUTO) 0.1 X10'3 (0-0.2)
[2020-10-05 13:35] LABS: BASOPHILS % (AUTO) 0.8 % (0-1); EOSINOPHILS % (AUTO) 0.5 % (0-6); HEMATOCRIT 42.5 % (42.0-52.0); HEMOGLOBIN 14.6 g/dl (14.0-17.9); LYMPHOCYTES # (AUTO) 3.2 X10'3 (1.1-4.8); LYMPHOCYTES % (AUTO) 36.7 % (21-51); MEAN CORPUSCULAR HEMOGLOBIN 30.7 PG (27.0-31.0); MEAN CORPUSCULAR HGB CONC 34.3 g/dL (33.0-36.5); MEAN CORPUSCULAR VOLUME 89.4 FL (78-98); MEAN PLATELET VOLUME 8.6 FL (7.4-10.4); MONOCYTES # (AUTO) 0.6 X10'3 (0-0.9); MONOCYTES % (AUTO) 7.3 % (2-12); NEUTROPHILS # (AUTO) 4.8 X10'3 (1.8-7.7); NEUTROPHILS % (AUTO) 54.7 % (42-75); PLATELET COUNT 247 X10'3 (140-440); RED BLOOD COUNT 4.76 X10'6 (4.70-6.10); RED CELL DISTRIBUTION WIDTH 13.5 % (11.5-14.5); WHITE BLOOD COUNT 8.7 X10'3 (4.5-11.0)
[2020-10-05 13:49] LABS: ACETAMINOPHEN < 2.0 UG/ML (10-30); ALANINE AMINOTRANSFERASE 39 U/L (12-78); ALBUMIN/GLOBULIN RATIO 1.1 (1.1-1.5); ALKALINE PHOSPHATASE 75 IU/L (46-116); ANION GAP 14 (8-16); ASPARTATE AMINO TRANSFERASE 37 U/L (10-37); BILIRUBIN,TOTAL 0.5 MG/DL (0.1-1.0); BLOOD UREA NITROGEN 11 MG/DL (7-18); BUN/CREATININE RATIO 12.8 (5.4-32.0); CALCIUM 9.2 MG/DL (8.5-10.1); CHLORIDE 96 MMOL/L (99-107); CREATININE 0.86 MG/DL (0.60-1.10); ETHANOL < 0.010 GM/DL (0.0-0.010); GLUCOSE 99 MG/DL (70-104); POTASSIUM 3.6 MMOL/L (3.5-5.1); SODIUM 134 MMOL/L (135-145); TOTAL CARBON DIOXIDE 24.4 MMOL/L (24-32); TOTAL PROTEIN 7.8 G/DL (6.4-8.2); eGFR > 90 ML/MIN
[2020-10-05 13:57] LABS: URINE AMPHETAMINE SCREEN NEGATIVE (Neg); URINE BARBITUATE SCREEN NEGATIVE (Neg); URINE BENZODIAZEPINES SCREEN NEGATIVE (Neg); URINE CANNABINOID SCREEN NEGATIVE (Neg); URINE COCAINE SCREEN NEGATIVE (Neg); URINE METHADONE SCREEN NEGATIVE (Neg); URINE OPIATE SCREEN NEGATIVE (Neg); URINE PHENCYCLIDINE SCREEN NEGATIVE (Neg)
--- NOTE | 2020-10-05 14:25 | NUR ---
[facility] received from S[facility]. Pt cooperative with changing into scrubs and did c/o having thoughts of wanting to kill himself. Pt declined food and drink, but was given a pitcher of water.
[2020-10-05] MEDS ORDERED: OLANZapine 5mg rapidly disint. tablet PO ONE (14:50)
[2020-10-05 15:03] LABS: UA COLLECTION TYPE VOIDED
[2020-10-05 15:06] LABS: CLARITY,URINE CLEAR (Clear); COLOR,URINE STRAW (Yellow); GLUCOSE, URINE NEGATIVE (Neg); KETONES,URINE 15 mg/dl (Neg); LEUKOCYTE ESTERASE ,URINE NEGATIVE (Neg); NITRITES, URINE NEGATIVE (Neg); OCCULT BLOOD,URINE NEGATIVE (Neg); PH,URINE 6.5 (4.8-8.0); PROTEIN,URINE NEGATIVE (Neg); UROBILINOGEN,URINE 0.2 E.U/dL (0.2-1.0)
--- NOTE | 2020-10-05 15:16 | NUR ---
Pt. responding to internal stimuli and stating he is seeing demons and his name is not Ronaldo, it is David and he prefers lucifer over god. PRN jorge alberto gallegos administered. Will continue to monitor.
[2020-10-05] MEDS: LORazepam 1 MG tablet PO PRN (15:22)
--- NOTE | 2020-10-05 15:25 | NUR ---
Pt. appearing agitated, fidgeting hands and seen throwing his pillow case, PRN ativan administered.
--- NOTE | 2020-10-05 16:13 | NUR ---
Parents: Parth Grzegorz, . Veronica [phone]
--- NOTE | 2020-10-05 16:22 | NUR ---
Pt. calmed down, resting in bed on his right side. No distress noted. Will continue to monitor.
--- NOTE | 2020-10-05 17:30 | NUR ---
[facility] suicide assessment unable to be completed due to agitation upon arrival and now pt. is sleeping. Will notifiy the NOC shift.
--- NOTE | 2020-10-05 17:30 | NUR ---
Pt. sleeping, no distress noted. [facility] unable to evaluate due to pt. sleeping. No distress noted. Will continue to monitor.
--- NOTE | 2020-10-05 18:18 | NUR ---
Pt transferred back to ER unit with ER nurse Mono and feliz pt. ambulatory, calm and cooperative.
[2020-10-05] MEDS ORDERED: diphenhydrAMINE 50 mg/ml inj IM ONE (18:25)
[2020-10-05] MEDS ORDERED: LORazepam 2 mg/ml vial IM ONE (18:25)
[2020-10-05] MEDS ORDERED: haloperidol lactate 5mg/ml inj IM ONE (18:25)
--- NOTE | 2020-10-05 19:17 | NUR ---
Clarified order for Haldol/Ativan/Benadryl at 1825 PRN. Patient had been agitated earlier when order was obtained for above meds; patient is resting quietly in room #15 at this time. Will continue to monitor.
[2020-10-05] MEDS: gabapentin 300mg capsule PO SCH (22:44)
[2020-10-05] MEDS: divalproex sod 125mg tablet.DR PO SCH (22:45)
[2020-10-05] MEDS: benztropine 1mg tablet PO SCH (22:46)
--- NOTE | 2020-10-06 00:06 | NUR ---
Patient is sleeping quietly, low fowlers position in bed. In direct view from nurses station.
--- NOTE | 2020-10-06 03:13 | NUR ---
Patient sleeps quietly. No distress noted.
--- NOTE | 2020-10-06 04:17 | NUR ---
Patient sleeps quietly, no distress.
[2020-10-06 05:31] VITALS: BP 122/4
--- NOTE | 2020-10-06 06:28 | NUR ---
Assumed care of patient
--- NOTE | 2020-10-06 07:09 | NUR ---
Moved indira to ER Overflow area bed 25
[2020-10-06] MEDS: divalproex sod 125mg tablet.DR PO SCH (07:26)
[2020-10-06] MEDS: benztropine 1mg tablet PO SCH (07:27)
[2020-10-06] MEDS: LORazepam 1 MG tablet PO PRN (07:29)
[2020-10-06] MEDS: gabapentin 300mg capsule PO SCH (07:30)
[2020-10-06] MEDS ORDERED: buproprion 150mg XL (24-hour) tablet PO SCH (08:00)
[2020-10-06] MEDS ORDERED: buPROPion SR 150mg tablet PO SCH (08:00)
--- NOTE | 2020-10-06 08:19 | NUR ---
Patient ate all breakfast and took all of his medications as prescribed
--- NOTE | 2020-10-06 09:20 | NUR ---
[facility] Pramod evaluated patient and was able to formulatye a safety plan. Patient had decompensated when mother went on vacation. Mother is now hiome and able to cvare for patient. Madeline and mother agree to discharge client back to his home.
--- NOTE | 2020-10-06 10:56 | NUR ---
Patient ambulated out of the ER Overflow with all of his belongings accompanied by his mother. He denies any suicidal ideation and will follow up with [facility] and LAURAH.
== END 2020-10-06 10:56 ==
LOC: ER 12:42
DX: R45.851 Suicidal ideations (principal); Z20.822 Contact with and (suspected) exposure to COVID-19; F81.9 Developmental disorder of scholastic skills, unspecified; F41.9 Anxiety disorder, unspecified; F32.9 Major depressive disorder, single episode, unspecified; F17.200 Nicotine dependence, unspecified, uncomplicated; F12.90 Cannabis use, unspecified, uncomplicated; F15.90 Other stimulant use, unspecified, uncomplicated; F14.90 Cocaine use, unspecified, uncomplicated; Z88.8 Allergy status to other drugs, medicaments and biological substances; Z79.899 Other long term (current) drug therapy
CPT/HCPCS: 36415; 80053; 80305; 80320; 80329; 81003; 85025; 87426; 99285

== ENCOUNTER 2020-10-13 17:38 | Emergency (ER) | payer MEDICARE, MEDICAID ==
[~2020-10-13] VITALS: Ht 172.7 cm; Wt 120.0 kg
--- NOTE | 2020-10-13 17:50 | NUR ---
Pt. brought straight back from the ER, arrived on a stretcher and assisted into bed with help from one staff member. Report given by EMT. V/S obtained and pt. able to change into [facility] scrubs independently.
--- NOTE | 2020-10-13 18:13 | NUR ---
The patient is nonverbal. He was given a dinner tray but doesn't acknowledge it is there. He was brought in by EMS. Per EMS he was found down in the grass and was nonverbal. He was last at [facility] ER yesterday but walked away and per EMS his mother filed a missing person's report. He had a brief stay on [facility] and his discharge diagnosis was MDD with psychotic symptoms, anxiety disorder and some reports of aspergers.
--- NOTE | 2020-10-13 18:34 | NUR ---
PA at the bedside interviewing the patient
--- NOTE | 2020-10-13 18:50 | NUR ---
The patient is speaking and cooperative. Lab is at the bedside drawing his blood
[2020-10-13 19:04] LABS: BASOPHILS # (AUTO) 0.1 X10'3 (0-0.2); EOSINOPHILS % (AUTO) 0.5 % (0-6); HEMATOCRIT 42.3 % (42.0-52.0); HEMOGLOBIN 14.5 g/dl (14.0-17.9); LYMPHOCYTES % (AUTO) 30.8 % (21-51); MEAN CORPUSCULAR HEMOGLOBIN 30.6 PG (27.0-31.0); MEAN CORPUSCULAR HGB CONC 34.3 g/dL (33.0-36.5); MEAN CORPUSCULAR VOLUME 89.4 FL (78-98); MEAN PLATELET VOLUME 8.3 FL (7.4-10.4); MONOCYTES # (AUTO) 0.8 X10'3 (0-0.9); MONOCYTES % (AUTO) 8.1 % (2-12); NEUTROPHILS # (AUTO) 5.9 X10'3 (1.8-7.7); NEUTROPHILS % (AUTO) 59.6 % (42-75); PLATELET COUNT 251 X10'3 (140-440); RED BLOOD COUNT 4.73 X10'6 (4.70-6.10); RED CELL DISTRIBUTION WIDTH 13.6 % (11.5-14.5); WHITE BLOOD COUNT 9.9 X10'3 (4.5-11.0)
[2020-10-13 19:12] LABS: CLARITY,URINE CLEAR (Clear); COLOR,URINE YELLOW (Yellow); GLUCOSE, URINE NEGATIVE (Neg); KETONES,URINE 15 mg/dl (Neg); LEUKOCYTE ESTERASE ,URINE NEGATIVE (Neg); NITRITES, URINE NEGATIVE (Neg); OCCULT BLOOD,URINE NEGATIVE (Neg); PROTEIN,URINE NEGATIVE (Neg); UROBILINOGEN,URINE 0.2 E.U/dL (0.2-1.0)
[2020-10-13 19:13] LABS: URINE AMPHETAMINE SCREEN NEGATIVE (Neg); URINE BARBITUATE SCREEN NEGATIVE (Neg); URINE BENZODIAZEPINES SCREEN NEGATIVE (Neg); URINE CANNABINOID SCREEN NEGATIVE (Neg); URINE COCAINE SCREEN NEGATIVE (Neg); URINE METHADONE SCREEN NEGATIVE (Neg); URINE OPIATE SCREEN NEGATIVE (Neg); URINE PHENCYCLIDINE SCREEN NEGATIVE (Neg)
[2020-10-13 19:15] LABS: UA COLLECTION TYPE CLN CATCH MIDSTREAM
[2020-10-13 19:16] LABS: ANION GAP 12 (8-16); BLOOD UREA NITROGEN 7 MG/DL (7-18); CHLORIDE 105 MMOL/L (99-107); CREATININE 0.94 MG/DL (0.60-1.10); GLUCOSE 91 MG/DL (70-104); POTASSIUM 4.1 MMOL/L (3.5-5.1); SODIUM 141 MMOL/L (135-145); TOTAL CARBON DIOXIDE 23.9 MMOL/L (24-32)
[2020-10-13 19:17] LABS: ALANINE AMINOTRANSFERASE 38 U/L (12-78); ALBUMIN 4.1 G/DL (3.4-5.0); ALBUMIN/GLOBULIN RATIO 1.1 (1.1-1.5); ALKALINE PHOSPHATASE 75 IU/L (46-116); ASPARTATE AMINO TRANSFERASE 38 U/L (10-37); BILIRUBIN,TOTAL 0.4 MG/DL (0.1-1.0); BUN/CREATININE RATIO 7.4 (5.4-32.0); TOTAL PROTEIN 7.8 G/DL (6.4-8.2); eGFR > 90 ML/MIN
[2020-10-13 19:39] LABS: BACTERIA,URINE NONE SEEN /HPF (Neg); RBC,URINE NONE SEEN /HPF (0-2); SQUAMOUS EPITHELIAL CELL,UR FEW /LPF (FEW)
[2020-10-13 19:40] LABS: MUCUS STRANDS FEW /LPF (Neg)
--- NOTE | 2020-10-13 20:03 | NUR ---
The patient is resting quietly on his bed.
[2020-10-13 20:49] VITALS: BP 139/72
== END 2020-10-13 20:54 | disposition home or self-care (01) ==
LOC: ER 17:39
DX: F20.9 Schizophrenia, unspecified (principal); F41.9 Anxiety disorder, unspecified; F32.9 Major depressive disorder, single episode, unspecified; F12.90 Cannabis use, unspecified, uncomplicated; F15.90 Other stimulant use, unspecified, uncomplicated; F14.90 Cocaine use, unspecified, uncomplicated; F19.90 Other psychoactive substance use, unspecified, uncomplicated; Z88.8 Allergy status to other drugs, medicaments and biological substances; Z79.899 Other long term (current) drug therapy
CPT/HCPCS: 36415; 80053; 80305; 81001; 85025; 99284

== ENCOUNTER 2021-07-22 19:46 | Emergency (ER) | payer MEDICARE, MEDICAID ==
[~2021-07-22] VITALS: Ht 175.3 cm; Wt 118.5 kg
[~2021-07-22 19:46] MED LIST changes: -BUPR-94 PO; +CLON0.2T PO; -DIVA125T31 PO; -GABA300C PO; +GABA800T11 PO; +NICO-668 BC; +QUET400T13 PO
[2021-07-22] MEDS ORDERED: quetiapine 100mg tablet PO STA (22:53)
[2021-07-22] MEDS ORDERED: LORazepam 1 MG tablet PO ONE (22:55)
[2021-07-22] MEDS ORDERED: BENZ1TAB7 PO (23:34)
[2021-07-22] MEDS ORDERED: GABA600T13 PO ×2 (23:34)
[2021-07-22] MEDS ORDERED: QUET400T PO (23:34)
[2021-07-22] MEDS ORDERED: DIVA500T2 PO ×2 (23:34)
[2021-07-22] MEDS ORDERED: testosterone gel TOP (23:34)
[2021-07-22] MEDS ORDERED: [UNRECOGNIZED DRUG - OTHER] PO (23:34)
[2021-07-22] MEDS ORDERED: gabapentin 300mg capsule PO PRN (23:50)
[2021-07-22] MEDS ORDERED: DIVA500T9 PO (23:55)
[2021-07-22] MEDS ORDERED: TEST5GEL19 TOP (23:55)
[2021-07-22] MEDS ORDERED: DIVA500T4 PO (23:55)
[2021-07-22] MEDS ORDERED: CHOL100025 PO (23:56)
[2021-07-23 00:07] LABS: CLARITY,URINE CLEAR (Clear); COLOR,URINE YELLOW (Yellow); GLUCOSE, URINE NEGATIVE (Neg); KETONES,URINE TRACE mg/dl (Neg); LEUKOCYTE ESTERASE ,URINE NEGATIVE (Neg); NITRITES, URINE NEGATIVE (Neg); OCCULT BLOOD,URINE NEGATIVE (Neg); PROTEIN,URINE NEGATIVE (Neg); URINE AMPHETAMINE SCREEN NEGATIVE (Neg); URINE BARBITUATE SCREEN NEGATIVE (Neg); URINE BENZODIAZEPINES SCREEN NEGATIVE (Neg); URINE CANNABINOID SCREEN NEGATIVE (Neg); URINE COCAINE SCREEN NEGATIVE (Neg); URINE METHADONE SCREEN NEGATIVE (Neg); URINE OPIATE SCREEN NEGATIVE (Neg); URINE PHENCYCLIDINE SCREEN NEGATIVE (Neg); UROBILINOGEN,URINE 0.2 E.U/dL (0.2-1.0)
[2021-07-23 00:12] LABS: UA COLLECTION TYPE CLN CATCH MIDSTREAM
[2021-07-23] MEDS ORDERED: LORazepam 1 MG tablet PO ONE (00:20)
--- NOTE | 2021-07-23 00:38 | NUR ---
The patient is a 25 year old male who was brought in by by his [facility] staff from [facility]. The patient has been experiencing a sharp increase in both auditory and visual hallucinations. He describes the voices and commanding him to harm himself and reports they are constant. He reports visual hallucinations of outlines of people. He reports paranoia regarding his food. The care staff report that while in the lobby he was wanting to run out into traffic. Once on the unit he was very anxious and tremusous despite being medicated while in the lobby. He was given an additional 2mg of ativan. Drugs and ETOH are denied and his drug screen was negative. The chcf staff and the patient report medication compliance. History: 4 inpatient psychiatric hospitalizations at [facility], Autism Spectrum Disorder, anxiety disorder, OCD, Schizophrenia.
[2021-07-23 00:44] LABS: BASOPHILS # (AUTO) 0.1 X10'3 (0-0.2); EOSINOPHILS # (AUTO) 0.2 X10'3 (0-0.9); EOSINOPHILS % (AUTO) 2.1 % (0-6); HEMATOCRIT 43.4 % (42.0-52.0); HEMOGLOBIN 15.1 g/dl (14.0-17.9); LYMPHOCYTES # (AUTO) 2.9 X10'3 (1.1-4.8); LYMPHOCYTES % (AUTO) 33.8 % (21-51); MEAN CORPUSCULAR HEMOGLOBIN 31.6 PG (27.0-31.0); MEAN CORPUSCULAR HGB CONC 34.9 g/dL (33.0-36.5); MEAN CORPUSCULAR VOLUME 90.7 FL (78-98); MEAN PLATELET VOLUME 8.5 FL (7.4-10.4); MONOCYTES # (AUTO) 0.9 X10'3 (0-0.9); MONOCYTES % (AUTO) 10.6 % (2-12); NEUTROPHILS # (AUTO) 4.4 X10'3 (1.8-7.7); NEUTROPHILS % (AUTO) 52.5 % (42-75); PLATELET COUNT 245 X10'3 (140-440); RED BLOOD COUNT 4.78 X10'6 (4.70-6.10); RED CELL DISTRIBUTION WIDTH 13.5 % (11.5-14.5); WHITE BLOOD COUNT 8.5 X10'3 (4.5-11.0)
--- NOTE | 2021-07-23 00:44 | NUR ---
[facility] Mickey [phone]
[2021-07-23 00:50] LABS: ALANINE AMINOTRANSFERASE 32 U/L (12-78); ALBUMIN 3.9 G/DL (3.4-5.0); ALKALINE PHOSPHATASE 67 IU/L (46-116); ANION GAP 13 (8-16); ASPARTATE AMINO TRANSFERASE 21 U/L (10-37); BILIRUBIN,TOTAL 0.3 MG/DL (0.1-1.0); BLOOD UREA NITROGEN 14 MG/DL (7-18); BUN/CREATININE RATIO 14.1 (5.4-32.0); CALCIUM 9.1 MG/DL (8.5-10.1); CHLORIDE 102 MMOL/L (99-107); CREATININE 0.99 MG/DL (0.60-1.10); GLUCOSE 109 MG/DL (70-104); SODIUM 139 MMOL/L (135-145); eGFR > 90 ML/MIN
[2021-07-23 01:01] LABS: ETHANOL < 0.010 GM/DL (0.0-0.010)
--- NOTE | 2021-07-23 01:57 | NUR ---
The patient appears to be sleeping
--- NOTE | 2021-07-23 03:57 | NUR ---
The patient appears to be sleeping
--- NOTE | 2021-07-23 05:01 | NUR ---
The patient appears to be sleeping
--- NOTE | 2021-07-23 07:00 | NUR ---
Received Pt in bed sleeping w/o distress.
--- NOTE | 2021-07-23 07:35 | NUR ---
Pt Packet faxed to [facility] at [phone].
[2021-07-23] MEDS: testosterone 5gm gel packet TD SCH (08:00)
[2021-07-23] MEDS: divalproex sod 250mg ER (24-hour) tablet PO SCH (08:46)
[2021-07-23] MEDS: benztropine 1mg tablet PO SCH ×2 (08:46→19:19)
[2021-07-23] MEDS: quetiapine 100mg tablet PO SCH ×3 (08:47→19:20)
[2021-07-23] MEDS: cholecalciferol (vitamin D3) 1,000 unit (25mcg) tablet PO SCH (08:47)
[2021-07-23] MEDS: gabapentin 300mg capsule PO SCH ×3 (08:47→19:20)
--- NOTE | 2021-07-23 09:30 | NUR ---
Pt remains in bed. Pt states he does not have an appetite and ate small amount of breakfast. Pt took AM meds w/o issue. Pts topical cream not available.
--- NOTE | 2021-07-23 11:00 | NUR ---
Pt in bed sleeping.
--- NOTE | 2021-07-23 13:30 | NUR ---
Pt ate lunch and took 1300 meds. Pt c/o hearing AH's and thoughts of suicide; "I wouldn't do it, I'm too scared". Pt cooperative and pleasant.
--- NOTE | 2021-07-23 14:30 | NUR ---
Pt seen by [facility] and placed on 5150 hold. Pt wants to get help and go to in-pt facility.
--- NOTE | 2021-07-23 16:30 | NUR ---
Pt in bed sleeping w/o distress.
[2021-07-23] MEDS: LORazepam 1 MG tablet PO PRN (18:42)
--- NOTE | 2021-07-23 19:00 | NUR ---
Pt stated he was anxious and felt like he was going to "loose it." Provider notified and 1MG ativan given with good effect. Pt endorses SI with a plan to cut his wrist and legs. + voices tell him to leave this hospital. [facility]
[2021-07-23] MEDS ORDERED: divalproex sod 250mg ER (24-hour) tablet PO SCH (21:00)
--- NOTE | 2021-07-23 21:36 | NUR ---
HS medications given early with good effect. PT is sleeping, no distress noted.
--- NOTE | 2021-07-23 23:23 | NUR ---
Pt appears to be sleeping.
--- NOTE | 2021-07-24 01:12 | NUR ---
Pt appears to be sleeping.
--- NOTE | 2021-07-24 04:03 | NUR ---
Pt appears to be sleeping.
--- NOTE | 2021-07-24 06:30 | NUR ---
PATIENT RECEIVED SLEEPING IN BED. NO S/S OF DISTRESS NOTED OR OBSERVED. WILL CONTINUE TO MONITOR.
--- NOTE | 2021-07-24 08:35 | NUR ---
PATIENT NOTED EATING HIS BREAKFAST IN HIS ROOM WITH NO S/S OF DISTRESS. HE APPROACHED STAFF SHORTLY AFTER ENDORSING THAT HE IS "FEELING BETTER AND READY TO GO HOME". HE IS OBSERVED PACING AROUND HIS ROOM AT THIS TIME TALKING ON THE TELEPHONE. WILL CONTINUE TO MONITOR.
[2021-07-24] MEDS: gabapentin 300mg capsule PO SCH (08:53)
[2021-07-24] MEDS: LORazepam 1 MG tablet PO PRN (08:53)
[2021-07-24] MEDS: quetiapine 100mg tablet PO SCH (08:53)
[2021-07-24] MEDS: cholecalciferol (vitamin D3) 1,000 unit (25mcg) tablet PO SCH (08:53)
[2021-07-24] MEDS: divalproex sod 250mg ER (24-hour) tablet PO SCH (08:54)
[2021-07-24] MEDS: benztropine 1mg tablet PO SCH (08:54)
[2021-07-24] MEDS: testosterone 5gm gel packet TD SCH (08:54)
--- NOTE | 2021-07-24 10:35 | NUR ---
PATIENT NOTED AMBULATING TO THE RESTROOM AND BACK TO HIS ROOM WITH A STEADY GAIT. PATIENT PROCEEDED TO LIE DOWN IN BED. NO CHANGES AT THIS TIME.
[2021-07-24 11:56] VITALS: BP 106/60
== END 2021-07-24 11:45 | disposition home or self-care (01) ==
LOC: ER 19:46
DX: R45.851 Suicidal ideations (principal); Z20.822 Contact with and (suspected) exposure to COVID-19; R44.0 Auditory hallucinations; F31.9 Bipolar disorder, unspecified; F84.0 Autistic disorder; F41.9 Anxiety disorder, unspecified; F12.90 Cannabis use, unspecified, uncomplicated; F15.90 Other stimulant use, unspecified, uncomplicated; F14.90 Cocaine use, unspecified, uncomplicated; F19.90 Other psychoactive substance use, unspecified, uncomplicated; Z88.8 Allergy status to other drugs, medicaments and biological substances; Z79.899 Other long term (current) drug therapy
CPT/HCPCS: 36415; 80053; 80305; 80320; 81003; 84443; 85025; 87635; 99285; C9803

== ENCOUNTER 2022-04-03 18:05 | Emergency (ER) | payer MEDICARE, MEDICAID ==
[~2022-04-03] VITALS: Ht 175.3 cm; Wt 133.0 kg
[~2022-04-03 18:05] MED LIST changes: +BUSP10TA3 PO; +CHOL100025 PO; +DIVA500T4 PO; +DIVA500T9 PO; +GABA600T13 PO; -GABA800T11 PO; +LORA-269 PO; -NICO-668 BC; +OLAN5TAB29 PO; +QUET100T34 PO; -QUET400T13 PO; +TEST5GEL19 TOP
[2022-04-03 18:50] VITALS: BP 154/99
== END 2022-04-03 20:39 | disposition left against medical advice (07) ==
LOC: ER 18:06
DX: R45.851 Suicidal ideations (principal); Z53.21 Procedure and treatment not carried out due to patient leaving prior to being seen by health care provider

== ENCOUNTER 2022-04-05 20:08 | Emergency (ER) | payer MEDICARE, MEDICAID ==
[~2022-04-05] VITALS: Ht 182.9 cm; Wt 136.6 kg
[2022-04-05 20:39] LABS: BASOPHILS # (AUTO) 0.1 X10'3 (0-0.2); BASOPHILS % (AUTO) 1.3 % (0-1); EOSINOPHILS # (AUTO) 0.2 X10'3 (0-0.9); EOSINOPHILS % (AUTO) 1.6 % (0-6); HEMATOCRIT 40.4 % (42.0-52.0); LYMPHOCYTES # (AUTO) 3.4 X10'3 (1.1-4.8); LYMPHOCYTES % (AUTO) 34.9 % (21-51); MEAN CORPUSCULAR HEMOGLOBIN 30.7 PG (27.0-31.0); MEAN CORPUSCULAR HGB CONC 34.8 g/dL (33.0-36.5); MEAN CORPUSCULAR VOLUME 88.2 FL (78-98); MEAN PLATELET VOLUME 7.8 FL (7.4-10.4); MONOCYTES # (AUTO) 0.8 X10'3 (0-0.9); MONOCYTES % (AUTO) 8.7 % (2-12); NEUTROPHILS # (AUTO) 5.1 X10'3 (1.8-7.7); NEUTROPHILS % (AUTO) 53.5 % (42-75); PLATELET COUNT 264 X10'3 (140-440); RED BLOOD COUNT 4.58 X10'6 (4.70-6.10); RED CELL DISTRIBUTION WIDTH 13.5 % (11.5-14.5); WHITE BLOOD COUNT 9.6 X10'3 (4.5-11.0)
[2022-04-05 20:52] LABS: ALANINE AMINOTRANSFERASE 32 U/L (12-78); ALBUMIN 3.9 G/DL (3.4-5.0); ALKALINE PHOSPHATASE 68 IU/L (46-116); ANION GAP 9 (8-16); ASPARTATE AMINO TRANSFERASE 16 U/L (10-37); BILIRUBIN,TOTAL 0.2 MG/DL (0.1-1.0); BLOOD UREA NITROGEN 15 MG/DL (7-18); BUN/CREATININE RATIO 16.3 (5.4-32.0); CALCIUM 9.2 MG/DL (8.5-10.1); CHLORIDE 102 MMOL/L (99-107); CREATININE 0.92 MG/DL (0.60-1.10); GLUCOSE 99 MG/DL (70-104); SODIUM 136 MMOL/L (135-145); TOTAL CARBON DIOXIDE 25.4 MMOL/L (24-32); TOTAL PROTEIN 7.9 G/DL (6.4-8.2); eGFR > 90 ML/MIN
[2022-04-05 20:59] LABS: ETHANOL < 0.010 GM/DL (0.0-0.010)
[2022-04-05 21:39] LABS: URINE AMPHETAMINE SCREEN NEGATIVE (Neg); URINE BARBITUATE SCREEN NEGATIVE (Neg); URINE BENZODIAZEPINES SCREEN NEGATIVE (Neg); URINE CANNABINOID SCREEN NEGATIVE (Neg); URINE COCAINE SCREEN NEGATIVE (Neg); URINE METHADONE SCREEN NEGATIVE (Neg); URINE OPIATE SCREEN NEGATIVE (Neg); URINE PHENCYCLIDINE SCREEN NEGATIVE (Neg)
[2022-04-05] MEDS ORDERED: OLAN5TAB29 PO (21:57)
[2022-04-05] MEDS ORDERED: BUS15T PO (21:57)
[2022-04-05] MEDS ORDERED: PROPRANOLOL PO (21:57)
[2022-04-05] MEDS ORDERED: FLUO-12 PO (21:57)
[2022-04-05] MEDS ORDERED: LORA-269 PO (21:57)
[2022-04-05] MEDS ORDERED: OLAN5TAB3 PO (21:57)
[2022-04-05] MEDS ORDERED: QUET300T2 PO (21:57)
[2022-04-05] MEDS ORDERED: HYDR-3686 PO (21:57)
[2022-04-05] MEDS ORDERED: TESTOSTERONE 1% TOP (21:57)
[2022-04-05] MEDS ORDERED: NICO-907 PO (22:03)
--- NOTE | 2022-04-05 22:14 | NUR ---
The patient is a 26 year old male who was brought in for a mental health evaluation by Jessica board and care staff member. He has a history of Schizoaffective Disorder, mild cognitive delay and high functioning Autism. He was cooperative with the intake. He states that he is having command auditory hallucinations "all the time" which tell him to buy fentanyl and take an overdose. He also reports visual hallucinations "all of the time" of demons. He described his mood as anxious and sad. He denies substance abuse. He reports he has been medication compliant.
--- NOTE | 2022-04-05 22:18 | NUR ---
MIKEY MARIN CARE PROVIDER,
--- NOTE | 2022-04-05 22:47 | NUR ---
The patient appears to be sleeping
--- NOTE | 2022-04-05 22:47 | NUR ---
PACKET SENT TO [facility]
[2022-04-05] MEDS ORDERED: hydrOXYzine 25 MG tablet PO PRN (23:20)
[2022-04-05] MEDS ORDERED: NICOTINE POLACRILEX 2 MG LOZENGE BC PRN (23:20)
[2022-04-05] MEDS ORDERED: LORazepam 1 MG tablet PO PRN (23:20)
--- NOTE | 2022-04-06 00:47 | NUR ---
The patient appears to be sleeping
--- NOTE | 2022-04-06 02:12 | NUR ---
The patient appears to be sleeping
--- NOTE | 2022-04-06 03:42 | NUR ---
The patient appears to be sleeping
--- NOTE | 2022-04-06 05:04 | NUR ---
The patient appears to be sleeping
[2022-04-06 06:06] VITALS: BP 120/58
--- NOTE | 2022-04-06 06:14 | NUR ---
Patient sleeping on his right side. No distress observed. Continue to monitor.
[2022-04-06] MEDS ORDERED: busPIRone 15mg tablet PO SCH (08:00)
[2022-04-06] MEDS ORDERED: benztropine 1mg tablet PO SCH (08:00)
[2022-04-06] MEDS ORDERED: gabapentin 300mg capsule PO SCH (08:00)
[2022-04-06] MEDS ORDERED: OLANZapine 5mg rapidly disint. tablet PO SCH (08:00)
[2022-04-06] MEDS ORDERED: divalproex sod 250mg ER (24-hour) tablet PO SCH ×2 (08:00→21:00)
[2022-04-06] MEDS ORDERED: PROPRANOLOL 60 MG PO SCH (08:00)
[2022-04-06] MEDS ORDERED: quetiapine fumarate ER 300mg tablet PO SCH (08:00)
[2022-04-06] MEDS ORDERED: testosterone 5gm gel packet TD SCH (08:00)
[2022-04-06] MEDS ORDERED: FLUoxetine 20mg capsule PO SCH (08:00)
--- NOTE | 2022-04-06 08:09 | NUR ---
Patient given his breakfast tray. Patient would prefer to sleep and states he is not hungry at this time. Covered tray left at bedside. No distress observed. Continue to monitoe.
--- NOTE | 2022-04-06 10:15 | NUR ---
Patient continues to sleep. No distress observed. Continue to monitor
--- NOTE | 2022-04-06 11:20 | NUR ---
Kleber MONK, evaluating patient. No distress observed. Continue to monitor.
--- NOTE | 2022-04-06 12:03 | NUR ---
Patient eating lunch. No distress observed. Continue to monitor.
[2022-04-06] MEDS ORDERED: cloNIDine 0.1 mg tablet PO SCH (21:00)
[2022-04-06] MEDS ORDERED: OLANZAPINE 5 MG TABLET PO SCH (21:00)
== END 2022-04-06 12:47 | disposition home or self-care (01) ==
LOC: ER 20:09
DX: R45.851 Suicidal ideations (principal); Z20.822 Contact with and (suspected) exposure to COVID-19; R44.0 Auditory hallucinations; R44.1 Visual hallucinations; F31.9 Bipolar disorder, unspecified; F41.9 Anxiety disorder, unspecified; F12.90 Cannabis use, unspecified, uncomplicated; F15.90 Other stimulant use, unspecified, uncomplicated; F14.90 Cocaine use, unspecified, uncomplicated; F19.90 Other psychoactive substance use, unspecified, uncomplicated; Z88.8 Allergy status to other drugs, medicaments and biological substances; Z79.899 Other long term (current) drug therapy
CPT/HCPCS: 36415; 80053; 80305; 80320; 84443; 85025; 87811; 99285

== ENCOUNTER 2022-04-12 20:42 | Inpatient (IN) | payer MEDICARE, MEDICAID ==
[~2022-04-12] VITALS: Ht 175.3 cm; Wt 146.6 kg
[~2022-04-12 20:42] MED LIST changes: +BUS15T PO; -BUSP10TA3 PO; -CHOL100025 PO; +FLUO-12 PO; +HYDR-3686 PO; +NICO-907 PO; +OLAN5TAB3 PO; +PROPRANOLOL PO; -QUET100T34 PO; +QUET300T2 PO; -TEST5GEL19 TOP; +TESTOSTERONE 1% TOP
[2022-04-12] MEDS ORDERED: magnesium hydroxide 30ml (MOM) UD suspension PO PRN (21:05)
[2022-04-12] MEDS ORDERED: loperamide 2mg capsule PO PRN (21:05)
[2022-04-12] MEDS ORDERED: acetaminophen 325mg tablet PO PRN ×2 (21:05)
[2022-04-12] MEDS ORDERED: quetiapine 100mg tablet PO ONE (21:40)
[2022-04-12] MEDS ORDERED: benztropine 1mg tablet PO ONE (21:40)
[2022-04-12] MEDS ORDERED: divalproex sod 250mg ER (24-hour) tablet PO ONE (21:40)
[2022-04-12] MEDS ORDERED: cloNIDine 0.1 mg tablet PO ONE (21:40)
[2022-04-12] MEDS ORDERED: busPIRone 15mg tablet PO ONE (21:40)
[2022-04-12] MEDS ORDERED: gabapentin 300mg capsule PO ONE (21:40)
[2022-04-12 21:44] VITALS: BP 139/81
[2022-04-12] MEDS ORDERED: OLANZapine 5mg rapidly disint. tablet PO ONE (21:50)
[2022-04-12] MEDS ORDERED: LORazepam 1 MG tablet PO PRN (21:50)
[2022-04-12] MEDS ORDERED: hydrOXYzine 25 MG tablet PO PRN (21:50)
[2022-04-12] MEDS ORDERED: NICOTINE POLACRILEX 2 MG LOZENGE BC PRN (21:50)
--- NOTE | 2022-04-12 23:00 | NUR ---
Admit note: Pt arrived from [facility] via [facility] transport. Pt is ambulatory upon arrival accompanied by Luke SORIA and . Pt is anxious and cooperative. Pt declined to shower. Pt reports CAH telling him to kill himself by drinking laundry soap, taking all of his medications or hang himself. Pt has had prior SA. Pt has hx of seizures.
[2022-04-13 07:54] LABS: HEMOGLOBIN A1C 5.2 % (4.5-6.2)
[2022-04-13 08:00] VITALS: BP 116/60
[2022-04-13] MEDS ORDERED: TESTOSTERONE TP SCH (08:00)
[2022-04-13] MEDS ORDERED: PROPRANOLOL 60 MG PO SCH (08:00)
[2022-04-13 08:08] LABS: CHOLESTEROL 165 MG/DL (0-200); HDL CHOLESTEROL 33 MG/DL (35-60); LDL CHOLESTEROL 85 MG/DL (50-100); TRIGLYCERIDES 367 MG/DL (20-135)
[2022-04-13] MEDS: FLUoxetine 20mg capsule PO SCH (08:27)
[2022-04-13] MEDS: divalproex sod 250mg ER (24-hour) tablet PO SCH ×2 (08:27→20:45)
[2022-04-13] MEDS: quetiapine 100mg tablet PO SCH ×2 (08:27→12:54)
[2022-04-13] MEDS: OLANZAPINE 5 MG TABLET PO SCH (08:27)
[2022-04-13] MEDS: busPIRone 15mg tablet PO SCH ×2 (08:27→20:44)
[2022-04-13] MEDS: benztropine 1mg tablet PO SCH ×2 (08:27→20:45)
[2022-04-13] MEDS: gabapentin 300mg capsule PO SCH ×3 (08:28→20:46)
[2022-04-13] MEDS: testosterone 5gm gel packet TD SCH (13:03)
--- NOTE | 2022-04-13 15:56 | NUR ---
Nursing Progress Note: Problem : Pt arrived from [facility] on 04/12/22. Pt declined to shower. Pt reports CAH telling him to kill himself by drinking laundry soap, taking all of his medications or hang himself. Pt has had prior SA. Pt has hx of seizures. Interventions : 1:1 assessment, therapeutic communication, active listening, ensured contract for safety, medication administration/education/monitoring, provided direction, encouragement, positive reinforcement, and Q 15 min safety checks. Response : Pt spent most of the day sleeping. Pt did awaken to come to meals. Pt was cooperative with scheduled medications. Pt reported, "I'm feeling way better than when I first came in, my hearing and seeing things has gone way down." Pt denied any SI/AH/VH today. No unsafe behaviors noted. Pt was pleasant and cooperative with staff but mostly isolative to self. Plan : Return to detention once stable and no longer a DTS.
[2022-04-13] MEDS: mag hydrox/Alum hydrox/simeth 30ml oral suspension PO PRN ×2 (16:26→20:43)
[2022-04-13 19:58] VITALS: BP 139/86
[2022-04-13] MEDS: QUEtiapine 25mg tablet PO SCH (20:44)
[2022-04-13] MEDS: cloNIDine 0.1 mg tablet PO SCH (20:45)
[2022-04-13] MEDS: OLANZapine 5mg rapidly disint. tablet PO SCH (20:45)
[2022-04-13] MEDS ORDERED: OLANZapine 5mg rapidly disint. tablet PO SCH (21:00)
--- NOTE | 2022-04-13 21:12 | NUR ---
Nursing Progress Note: Problem : Pt arrived from [facility] on 04/12/22. Pt declined to shower. Pt reports CAH telling him to kill himself by drinking laundry soap, taking all of his medications or hang himself. Pt has had prior SA. Pt has hx of seizures. Interventions : 1:1 assessment, therapeutic communication, active listening, ensured contract for safety, medication administration/education/monitoring, provided direction, encouragement, positive reinforcement, and Q 15 min safety checks. Response : Pt was in the group room at change of shift, finishing dinner. Pt returned to his room and reports he is feeling "much better". Pt denies s/i, denies ah. Pt is smiling and pleasant. Pt met with provider and then had snacks in the group room. Pt is c/o indigestion and was given prn maalox. Pt went to bed shortly after taking meds. Plan : Return to halfway once stable and no longer a DTS.
[2022-04-14 07:26] VITALS: BP 143/74
[2022-04-14] MEDS: OLANZAPINE 5 MG TABLET PO SCH (08:09)
[2022-04-14] MEDS: FLUoxetine 20mg capsule PO SCH (08:09)
[2022-04-14] MEDS: divalproex sod 250mg ER (24-hour) tablet PO SCH ×2 (08:09→20:12)
[2022-04-14] MEDS: benztropine 1mg tablet PO SCH ×2 (08:09→20:11)
[2022-04-14] MEDS: propranolol LA 60 MG cap.SA.24H PO SCH (08:09)
[2022-04-14] MEDS: busPIRone 15mg tablet PO SCH ×2 (08:09→20:11)
[2022-04-14] MEDS: gabapentin 300mg capsule PO SCH ×3 (08:09→20:11)
[2022-04-14] MEDS: testosterone 5gm gel packet TD SCH (08:10)
[2022-04-14] MEDS: quetiapine 100mg tablet PO SCH ×2 (08:10→12:48)
--- NOTE | 2022-04-14 14:04 | NUR ---
Nursing Progress Note: Problem : Pt arrived from [facility] on 04/12/22. Pt declined to shower. Pt reports CAH telling him to kill himself by drinking laundry soap, taking all of his medications or hang himself. Pt has had prior SA. Pt has hx of seizures. Interventions : 1:1 assessment, therapeutic communication, active listening, ensured contract for safety, medication administration/education/monitoring, provided direction, encouragement, positive reinforcement, and Q 15 min safety checks. Response : Pt is pleasant and cooperative with care and meds. Pt is polite, pt says "thank you" frequently. Pt denies SI/HI/AH/VH. No unsafe behaviors noted. Plan : Return to custodial once stable and no longer a DTS.
[2022-04-14 19:27] VITALS: BP 144/95
[2022-04-14] MEDS: QUEtiapine 25mg tablet PO SCH (20:10)
[2022-04-14] MEDS: OLANZapine 5mg rapidly disint. tablet PO SCH (20:11)
[2022-04-14] MEDS: cloNIDine 0.1 mg tablet PO SCH (20:11)
--- NOTE | 2022-04-14 23:08 | NUR ---
Nursing Progress Note: Problem : Pt arrived from [facility] on 04/12/22. Pt declined to shower. Pt reports CAH telling him to kill himself by drinking laundry soap, taking all of his medications or hang himself. Pt has had prior SA. Pt has hx of seizures. Interventions : 1:1 assessment, therapeutic communication, active listening, ensured contract for safety, medication administration/education/monitoring, provided direction, encouragement, positive reinforcement, and Q 15 min safety checks. Response : Pt is hanging out in the hallway at change of shift. He said he is doing good and hoping he can go home soon. Pt denies s/i, denies AH. Pt appears to be anxious, guarded, but states he is fine. Pt requested HS meds and was provided with meds. Pt was sitting on the end of his bed in the dark asked if he was ok and he replied "Ya Im just enjoying the beautiful scenery." Plan : Return to long term once stable and no longer a DTS.
[2022-04-15 08:00] VITALS: BP 117/65
[2022-04-15] MEDS: busPIRone 15mg tablet PO SCH (08:10)
[2022-04-15] MEDS: gabapentin 300mg capsule PO SCH ×2 (08:10→13:02)
[2022-04-15] MEDS: OLANZAPINE 5 MG TABLET PO SCH (08:10)
[2022-04-15] MEDS: propranolol LA 60 MG cap.SA.24H PO SCH (08:10)
[2022-04-15] MEDS: FLUoxetine 20mg capsule PO SCH (08:10)
[2022-04-15] MEDS: divalproex sod 250mg ER (24-hour) tablet PO SCH (08:10)
[2022-04-15] MEDS: benztropine 1mg tablet PO SCH (08:10)
[2022-04-15] MEDS: quetiapine 100mg tablet PO SCH ×2 (08:11→13:02)
[2022-04-15] MEDS: testosterone 5gm gel packet TD SCH (08:11)
--- NOTE | 2022-04-15 11:19 | NUR ---
DISCHARGE PLAN Spoke to Ronaldo's mother, Radha (ph# [phone]), who reported she is comfortable with Ronaldo returning to his longterm today. She can pick him up and assist him with returning home today. Scheduled follow up with [facility]. EMERALD Cummings
[2022-04-15] MEDS ORDERED: QUET400T PO (13:08)
[2022-04-15] MEDS ORDERED: OLAN20TA19 PO (13:10)
--- NOTE | 2022-04-15 14:15 | NUR ---
Discharge Note Pt picked up by his mother and returned to his B&C. Pt medications returned to pt and signed out. All personal belongings returned to pt and signed out. Pt denied smoking cessation resources and referrals.
[2022-04-15] MEDS ORDERED: quetiapine 100mg tablet PO SCH (21:00)
== END 2022-04-15 14:29 | disposition home or self-care (01) | DRG 885 ==
LOC: ADULT MH 20:42
PROVIDERS: ADMIT Psychiatry & Neurology Psychiatry; ATTEND Psychiatry & Neurology Psychiatry
DX: F33.9 Major depressive disorder, recurrent, unspecified (principal); R45.851 Suicidal ideations; Z68.42 Body mass index [BMI] 45.0-49.9, adult; F25.0 Schizoaffective disorder, bipolar type; F84.0 Autistic disorder; E66.9 Obesity, unspecified; F12.10 Cannabis abuse, uncomplicated; F14.10 Cocaine abuse, uncomplicated; F41.9 Anxiety disorder, unspecified; F39 Unspecified mood [affective] disorder; R00.0 Tachycardia, unspecified; F15.90 Other stimulant use, unspecified, uncomplicated; F17.210 Nicotine dependence, cigarettes, uncomplicated; F43.10 Post-traumatic stress disorder, unspecified; G40.909 Epilepsy, unspecified, not intractable, without status epilepticus; Z79.899 Other long term (current) drug therapy; Z88.8 Allergy status to other drugs, medicaments and biological substances; Z71.51 Drug abuse counseling and surveillance of drug abuser
CPT/HCPCS: 36415; 80061; 82948; 83036; 87081

== ENCOUNTER 2022-04-27 19:46 | Emergency (ER) | payer MEDICARE, MEDICAID ==
[~2022-04-27] VITALS: Ht 175.3 cm; Wt 118.2 kg
[~2022-04-27 19:46] MED LIST changes: -HYDR-3686 PO; +OLAN20TA19 PO; -OLAN5TAB3 PO; +QUET400T PO
--- NOTE | 2022-04-27 19:59 | NUR ---
UPON SPEAKING WITH ALLA AFTER PATIENT WAS TRIAGED IT HAS BEEN REPORTED TO THE NURSE THAT PT "TOOK 12-30 MALE ENHANCEMENT PILLS SINCE TUESDAY".
[2022-04-27 22:26] LABS: BASOPHILS # (AUTO) 0.1 X10'3 (0-0.2); BASOPHILS % (AUTO) 1.6 % (0-1); EOSINOPHILS # (AUTO) 0.2 X10'3 (0-0.9); HEMATOCRIT 39.1 % (42.0-52.0); HEMOGLOBIN 13.9 g/dl (14.0-17.9); LYMPHOCYTES % (AUTO) 35.5 % (21-51); MEAN CORPUSCULAR HEMOGLOBIN 30.9 PG (27.0-31.0); MEAN CORPUSCULAR HGB CONC 35.6 g/dL (33.0-36.5); MEAN CORPUSCULAR VOLUME 86.8 FL (78-98); MEAN PLATELET VOLUME 8.2 FL (7.4-10.4); MONOCYTES % (AUTO) 11.4 % (2-12); NEUTROPHILS # (AUTO) 4.2 X10'3 (1.8-7.7); NEUTROPHILS % (AUTO) 49.5 % (42-75); PLATELET COUNT 277 X10'3 (140-440); RED BLOOD COUNT 4.51 X10'6 (4.70-6.10); RED CELL DISTRIBUTION WIDTH 13.1 % (11.5-14.5); WHITE BLOOD COUNT 8.4 X10'3 (4.5-11.0)
[2022-04-27 22:27] LABS: ALANINE AMINOTRANSFERASE 31 U/L (12-78); ALBUMIN 3.5 G/DL (3.4-5.0); ALBUMIN/GLOBULIN RATIO 0.8 (1.1-1.5); ALKALINE PHOSPHATASE 70 IU/L (46-116); ANION GAP 8 (8-16); ASPARTATE AMINO TRANSFERASE 16 U/L (10-37); BILIRUBIN,TOTAL 0.1 MG/DL (0.1-1.0); BLOOD UREA NITROGEN 12 MG/DL (7-18); BUN/CREATININE RATIO 11.9 (5.4-32.0); CALCIUM 9.7 MG/DL (8.5-10.1); CHLORIDE 103 MMOL/L (99-107); CREATININE 1.01 MG/DL (0.60-1.10); GLUCOSE 98 MG/DL (70-104); POTASSIUM 4.1 MMOL/L (3.5-5.1); SODIUM 139 MMOL/L (135-145); TOTAL CARBON DIOXIDE 28.3 MMOL/L (24-32); TOTAL PROTEIN 7.7 G/DL (6.4-8.2); eGFR 89 ML/MIN
--- NOTE | 2022-04-27 22:28 | NUR ---
caregiver reports pt taking 13 libido pills since tuesday.
[2022-04-27 22:42] LABS: ETHANOL < 0.010 GM/DL (0.0-0.010)
[2022-04-28 06:03] VITALS: BP 102/51
[2022-04-28 06:14] LABS: CLARITY,URINE CLEAR (Clear); COLOR,URINE YELLOW (Yellow); GLUCOSE, URINE NEGATIVE (Neg); KETONES,URINE TRACE mg/dl (Neg); LEUKOCYTE ESTERASE ,URINE NEGATIVE (Neg); NITRITES, URINE NEGATIVE (Neg); OCCULT BLOOD,URINE NEGATIVE (Neg); PROTEIN,URINE NEGATIVE (Neg); UROBILINOGEN,URINE 0.2 E.U/dL (0.2-1.0)
[2022-04-28 06:16] LABS: UA COLLECTION TYPE CLN CATCH MIDSTREAM
[2022-04-28 06:24] LABS: URINE AMPHETAMINE SCREEN NEGATIVE (Neg); URINE BARBITUATE SCREEN NEGATIVE (Neg); URINE BENZODIAZEPINES SCREEN NEGATIVE (Neg); URINE CANNABINOID SCREEN NEGATIVE (Neg); URINE COCAINE SCREEN NEGATIVE (Neg); URINE METHADONE SCREEN NEGATIVE (Neg); URINE OPIATE SCREEN NEGATIVE (Neg); URINE PHENCYCLIDINE SCREEN NEGATIVE (Neg)
--- NOTE | 2022-04-28 06:45 | NUR ---
Pt moved from main ED bed #14 to OVF bed #21. Pt appears to be sleeping on his back with his eyes closed.
--- NOTE | 2022-04-28 08:40 | NUR ---
MD here to assess pt. Pt up for breakfast.
--- NOTE | 2022-04-28 09:10 | NUR ---
Pt ate his meal. He is c/o of "voices that are not mine." Pt states, "I'm going to cover my head with a pillow and go back to sleep." [facility]
--- NOTE | 2022-04-28 11:05 | NUR ---
Pt appears to be sleeping. RR even and unlabored. He has been seen by EMERALD Shahid. He will be discharged.
--- NOTE | 2022-04-28 12:25 | NUR ---
Pt refused lunch. He said, "I will eat at home."
--- NOTE | 2022-04-28 14:03 | NUR ---
Pt's mother is on her way to pick him up.
--- NOTE | 2022-04-28 14:21 | NUR ---
Pt discharged back to his penitentiary. He is being picked up by his mother or father. Pt reminded to reach out to community resources and/or [facility] when having feelings of being unsafe. Pt acknowledges understanding and agrees.
== END 2022-04-28 14:41 | disposition home or self-care (01) ==
LOC: ER 19:47
DX: R45.851 Suicidal ideations (principal); Z20.822 Contact with and (suspected) exposure to COVID-19; R44.0 Auditory hallucinations; F20.9 Schizophrenia, unspecified; F31.9 Bipolar disorder, unspecified; F12.10 Cannabis abuse, uncomplicated; F15.10 Other stimulant abuse, uncomplicated; F11.10 Opioid abuse, uncomplicated; Z79.899 Other long term (current) drug therapy; Z88.8 Allergy status to other drugs, medicaments and biological substances
CPT/HCPCS: 36415; 80053; 80305; 80320; 81003; 84443; 85025; 87811; 99285

== ENCOUNTER 2023-02-13 19:31 | Emergency (ER) | payer MEDICARE, MEDICAID ==
[~2023-02-13] VITALS: Ht 175.3 cm; Wt 131.8 kg
[~2023-02-13 19:31] MED LIST changes: -BENZ1TAB7 PO; +BENZ1TAB93 PO
[2023-02-13 19:38] VITALS: BP 150/93; PULSE 103; RESP 16; TEMP 98; O2SAT 97
[2023-02-13 21:18] LABS: BASOPHILS # (AUTO) 0.2 X10'3 (0-0.2); BASOPHILS % (AUTO) 1.9 % (0-1); EOSINOPHILS # (AUTO) 0.1 X10'3 (0-0.9); EOSINOPHILS % (AUTO) 1.3 % (0-6); HEMATOCRIT 40.5 % (42.0-52.0); HEMOGLOBIN 14.3 g/dl (14.0-17.9); LYMPHOCYTES % (AUTO) 44.7 % (21-51); MEAN CORPUSCULAR HEMOGLOBIN 32.6 PG (27.0-31.0); MEAN CORPUSCULAR HGB CONC 35.4 g/dL (33.0-36.5); MEAN CORPUSCULAR VOLUME 92.1 FL (78-98); MEAN PLATELET VOLUME 8.4 FL (7.4-10.4); MONOCYTES # (AUTO) 0.5 X10'3 (0-0.9); NEUTROPHILS # (AUTO) 4.1 X10'3 (1.8-7.7); NEUTROPHILS % (AUTO) 46.1 % (42-75); PLATELET COUNT 267 X10'3 (140-440); RED BLOOD COUNT 4.39 X10'6 (4.70-6.10); RED CELL DISTRIBUTION WIDTH 13.3 % (11.5-14.5)
[2023-02-13 21:19] LABS: CLARITY,URINE CLEAR (Clear); COLOR,URINE STRAW (Yellow); GLUCOSE, URINE NEGATIVE (Neg); KETONES,URINE NEGATIVE (Neg); LEUKOCYTE ESTERASE ,URINE NEGATIVE (Neg); NITRITES, URINE NEGATIVE (Neg); OCCULT BLOOD,URINE NEGATIVE (Neg); PROTEIN,URINE NEGATIVE (Neg); UROBILINOGEN,URINE 0.2 E.U/dL (0.2-1.0)
[2023-02-13 21:20] LABS: UA COLLECTION TYPE CLN CATCH MIDSTREAM
[2023-02-13 21:51] LABS: ALBUMIN 3.7 G/DL (3.4-5.0); ALBUMIN/GLOBULIN RATIO 0.9 (1.1-1.5); ALKALINE PHOSPHATASE 54 IU/L (46-116); BILIRUBIN,TOTAL 0.3 MG/DL (0.1-1.0); BLOOD UREA NITROGEN 13 MG/DL (7-18); BUN/CREATININE RATIO 13.7 (10.0-20.0); CALCIUM 9.2 MG/DL (8.5-10.1); CHLORIDE 99 MMOL/L (99-107); CREATININE 0.95 MG/DL (0.60-1.10); TOTAL CARBON DIOXIDE 21.3 MMOL/L (24-32); TOTAL PROTEIN 7.8 G/DL (6.4-8.2); eGFR > 90 ML/MIN
[2023-02-13 21:59] LABS: ETHANOL < 10 MG/DL (<10)
[2023-02-13 22:56] LABS: ALANINE AMINOTRANSFERASE 45 U/L (12-78)
[2023-02-13 22:59] LABS: ASPARTATE AMINO TRANSFERASE 23 U/L (10-37); GLUCOSE 123 MG/DL (70-104)
[2023-02-13 23:13] LABS: ANION GAP 15 (8-16); SODIUM 135 MMOL/L (135-145)
[2023-02-13 23:14] LABS: POTASSIUM 4.3 MMOL/L (3.5-5.1)
[2023-02-14 00:01] LABS: URINE AMPHETAMINE SCREEN NEGATIVE (Neg); URINE BARBITUATE SCREEN NEGATIVE (Neg); URINE BENZODIAZEPINES SCREEN NEGATIVE (Neg); URINE CANNABINOID SCREEN NEGATIVE (Neg); URINE COCAINE SCREEN NEGATIVE (Neg); URINE METHADONE SCREEN NEGATIVE (Neg); URINE OPIATE SCREEN NEGATIVE (Neg); URINE PHENCYCLIDINE SCREEN NEGATIVE (Neg)
== END 2023-02-14 00:08 | disposition left against medical advice (07) ==
LOC: ER 19:32
DX: R45.851 Suicidal ideations (principal); Z53.21 Procedure and treatment not carried out due to patient leaving prior to being seen by health care provider
CPT/HCPCS: 36415; 80053; 80305; 80320; 81003; 85025; 99281

== ENCOUNTER 2023-02-14 16:57 | Emergency (ER) | payer MEDICARE, MEDICAID ==
[~2023-02-14] VITALS: Ht 175.3 cm; Wt 113.6 kg
[2023-02-14] MEDS ORDERED: OLANZapine **IM** 10 mg inj. IM ONE (18:55)
[2023-02-14 19:18] LABS: BASOPHILS # (AUTO) 0.1 X10'3 (0-0.2); BASOPHILS % (AUTO) 0.8 % (0-1); EOSINOPHILS # (AUTO) 0.1 X10'3 (0-0.9); EOSINOPHILS % (AUTO) 1.2 % (0-6); HEMATOCRIT 39.1 % (42.0-52.0); HEMOGLOBIN 13.5 g/dl (14.0-17.9); LYMPHOCYTES # (AUTO) 3.9 X10'3 (1.1-4.8); LYMPHOCYTES % (AUTO) 42.9 % (21-51); MEAN CORPUSCULAR HEMOGLOBIN 31.8 PG (27.0-31.0); MEAN CORPUSCULAR HGB CONC 34.6 g/dL (33.0-36.5); MEAN CORPUSCULAR VOLUME 91.8 FL (78-98); MEAN PLATELET VOLUME 7.9 FL (7.4-10.4); MONOCYTES # (AUTO) 0.7 X10'3 (0-0.9); MONOCYTES % (AUTO) 7.3 % (2-12); NEUTROPHILS # (AUTO) 4.3 X10'3 (1.8-7.7); NEUTROPHILS % (AUTO) 47.8 % (42-75); PLATELET COUNT 248 X10'3 (140-440); RED BLOOD COUNT 4.25 X10'6 (4.70-6.10); RED CELL DISTRIBUTION WIDTH 13.2 % (11.5-14.5); WHITE BLOOD COUNT 9.1 X10'3 (4.5-11.0)
[2023-02-14 19:28] LABS: ALANINE AMINOTRANSFERASE 39 U/L (12-78); ALBUMIN 3.5 G/DL (3.4-5.0); ALBUMIN/GLOBULIN RATIO 0.9 (1.1-1.5); ALKALINE PHOSPHATASE 41 IU/L (46-116); ANION GAP 10 (8-16); ASPARTATE AMINO TRANSFERASE 17 U/L (10-37); BILIRUBIN,TOTAL 0.2 MG/DL (0.1-1.0); BLOOD UREA NITROGEN 13 MG/DL (7-18); BUN/CREATININE RATIO 14.8 (10.0-20.0); CALCIUM 9.2 MG/DL (8.5-10.1); CHLORIDE 101 MMOL/L (99-107); CREATININE 0.88 MG/DL (0.60-1.10); ETHANOL < 10 MG/DL (<10); GLUCOSE 88 MG/DL (70-104); POTASSIUM 4.5 MMOL/L (3.5-5.1); SODIUM 136 MMOL/L (135-145); TOTAL CARBON DIOXIDE 25.1 MMOL/L (24-32); TOTAL PROTEIN 7.4 G/DL (6.4-8.2); eGFR > 90 ML/MIN
[2023-02-14] MEDS ORDERED: LORazepam 1 MG tablet PO PRN (23:15)
[2023-02-15 06:25] VITALS: BP 118/66; PULSE 71; RESP 16; O2SAT 95
--- NOTE | 2023-02-15 07:00 | NUR ---
Received Pt in bed sleeping w/o distress. Will continue to monitor.
[2023-02-15] MEDS ORDERED: busPIRone 15mg tablet PO SCH (08:00)
[2023-02-15] MEDS ORDERED: divalproex sod 250mg ER (24-hour) tablet PO SCH ×2 (08:00→21:00)
[2023-02-15] MEDS ORDERED: OLANZAPINE 5 MG TABLET PO SCH (08:00)
[2023-02-15] MEDS ORDERED: FLUoxetine 20mg capsule PO SCH (08:00)
[2023-02-15] MEDS ORDERED: propranolol LA 60 MG cap.SA.24H PO SCH (08:00)
[2023-02-15] MEDS ORDERED: benztropine 1mg tablet PO SCH (08:00)
[2023-02-15] MEDS ORDERED: TESTOSTERONE TOP SCH (08:00)
[2023-02-15 08:27] LABS: CLARITY,URINE CLEAR (Clear); COLOR,URINE STRAW (Yellow); GLUCOSE, URINE NEGATIVE (Neg); KETONES,URINE NEGATIVE (Neg); LEUKOCYTE ESTERASE ,URINE NEGATIVE (Neg); NITRITES, URINE NEGATIVE (Neg); OCCULT BLOOD,URINE NEGATIVE (Neg); PH,URINE 6.5 (4.8-8.0); PROTEIN,URINE NEGATIVE (Neg); UROBILINOGEN,URINE 0.2 E.U/dL (0.2-1.0)
[2023-02-15 08:29] LABS: UA COLLECTION TYPE CLN CATCH MIDSTREAM
[2023-02-15 08:35] LABS: URINE AMPHETAMINE SCREEN NEGATIVE (Neg); URINE BARBITUATE SCREEN NEGATIVE (Neg); URINE BENZODIAZEPINES SCREEN NEGATIVE (Neg); URINE CANNABINOID SCREEN NEGATIVE (Neg); URINE COCAINE SCREEN NEGATIVE (Neg); URINE METHADONE SCREEN NEGATIVE (Neg); URINE OPIATE SCREEN NEGATIVE (Neg); URINE PHENCYCLIDINE SCREEN NEGATIVE (Neg)
[2023-02-15] MEDS: quetiapine 100mg tablet PO SCH ×2 (08:48→13:00)
[2023-02-15] MEDS: gabapentin 300mg capsule PO SCH ×2 (08:49→13:00)
--- NOTE | 2023-02-15 09:00 | NUR ---
Pt was woken to eat breakfast, which he did well. Pt took AM meds w/o issue. He appears tired yet cooperative. Pt remembered this RN from previous visit and returned to sleep.
--- NOTE | 2023-02-15 11:00 | NUR ---
Pt was evaluated by [facility] clinician and will not be placed on a 5150. Arrange ments made with Pt's assisted to take him back.
--- NOTE | 2023-02-15 12:00 | NUR ---
Pt in bed sleeping at this time. Will continue to monitor.
--- NOTE | 2023-02-15 13:40 | NUR ---
Pt discharged to group therapy counselor to return home. Discharge instructions reviewed and belongings returned.
[2023-02-15 15:52] VITALS: TEMP 98.1
[2023-02-15] MEDS ORDERED: cloNIDine 0.1 mg tablet PO SCH (21:00)
== END 2023-02-15 15:53 ==
LOC: ER 16:58
DX: R45.851 Suicidal ideations (principal); Z20.822 Contact with and (suspected) exposure to COVID-19; F31.9 Bipolar disorder, unspecified; F20.9 Schizophrenia, unspecified; F12.10 Cannabis abuse, uncomplicated; F15.10 Other stimulant abuse, uncomplicated; F11.10 Opioid abuse, uncomplicated; Z88.8 Allergy status to other drugs, medicaments and biological substances; Z79.899 Other long term (current) drug therapy
CPT/HCPCS: 36415; 80053; 80305; 80320; 81003; 85025; 87811; 96372; 99285; J3490

== ENCOUNTER 2024-04-03 10:32 | Emergency (ER) | payer MEDICARE, MEDICAID ==
[~2024-04-03] VITALS: Ht 175.3 cm; Wt 113.6 kg
[~2024-04-03 10:32] MED LIST changes: -NICO-907 PO; -OLAN20TA19 PO; -QUET400T PO; -TESTOSTERONE 1% TOP
[2024-04-03 10:41] VITALS: BP 130/76; PULSE 108; RESP 18; TEMP 99.8; O2SAT 98
[2024-04-04] MEDS ORDERED: GABA-530 PO (12:58)
[2024-04-04] MEDS ORDERED: TEST60GE3 TOP (12:58)
== END 2024-04-03 11:08 ==
LOC: ER 10:32
DX: F15.90 Other stimulant use, unspecified, uncomplicated (principal); Z02.89 Encounter for other administrative examinations; F41.9 Anxiety disorder, unspecified; F31.9 Bipolar disorder, unspecified; F28 Other psychotic disorder not due to a substance or known physiological condition; F20.9 Schizophrenia, unspecified; F12.90 Cannabis use, unspecified, uncomplicated; F14.90 Cocaine use, unspecified, uncomplicated; F19.90 Other psychoactive substance use, unspecified, uncomplicated; Z88.8 Allergy status to other drugs, medicaments and biological substances; Z79.899 Other long term (current) drug therapy
CPT/HCPCS: 99283